=== PATIENT | female | born 1965 | race American Indian/Alaskan Native ===

== ENCOUNTER 2019-08-12 11:19 | Inpatient (IN) | payer OTHER ==
[2019-08-12] MEDS ORDERED: SODIUM CHLORIDE 0.9% 500 ML 500 ML IV ONE (11:29)
[2019-08-12 11:55] LABS: Basophils % (Auto) 0.4 % (0.0-1.8); Eosinophils # (Auto) 0.2 K/mm3 (0.0-0.4); Eosinophils % (Auto) 2.7 % (0.0-4.3); Hematocrit 34.3 % (30.3-42.9); Hemoglobin 11.1 gm/dl (10.1-14.3); Lymphocytes # (Auto) 0.6 K/mm3 (1.2-5.4); Lymphocytes % (Auto) 8.6 % (13.4-35.0); Mean Corpuscular HGB Conc 32 % (30-34); Mean Corpuscular Volume 87 fl (79-97); Monocytes # (Auto) 0.4 K/mm3 (0.0-0.8); Platelet Count 327 K/mm3 (140-440); Red Blood Count 3.93 M/mm3 (3.65-5.03); Red Cell Distribution Width 19.2 % (13.2-15.2)
--- NOTE | 2019-08-12 11:57 | XRay Report ---
CHEST 1 VIEW INDICATION: possible Sepsis. COMPARISON: None FINDINGS: Support devices: Right-sided Port-A-Cath with tip at the cavoatrial junction in satisfactory position . Heart: Within normal limits. Lungs/Pleura: Very mild interstitial edema with probable trace effusion on the right. Additional findings: None. IMPRESSION: 1. Very mild interstitial edema with probable trace effusion on the right. Signer Name: Thang Franco MD Signed: 08/12/2019 11:53 AM Workstation Name: [id number]
[2019-08-12 12:06] LABS: INR 1.71 (0.87-1.13)
[2019-08-12 12:22] LABS: Alanine Aminotransferase 35 units/L (7-56); Albumin 2.6 g/dL (3.9-5); BUN/Creatinine Ratio 22; Blood Urea Nitrogen 20 mg/dL (7-17); Calcium 8.3 mg/dL (8.4-10.2); Hemolysis Index 9
[2019-08-12] MEDS ORDERED: SODIUM CHLORIDE 0.9% 1000 ML IV SOLN IV ONE (12:29)
[2019-08-12] MEDS ORDERED: VANCOMYCIN 1,250 MG in SODIUM CHLORIDE 0.9% 500 ML 500 ML IV ONE (12:29)
--- NOTE | 2019-08-12 12:34 | Emergency Department Report ---
<BRITTA ESCOBAR - Last Filed: 08/12/19 12:49> ED General Adult HPI - General Chief complaint: Chest Pain Stated complaint: CHEST/BACK PAIN/ESTEFANÍA Time Seen by Provider: 08/12/19 12:03 Source: patient, family Mode of arrival: Ambulatory Limitations: No Limitations - History of Present Illness Initial comments: This is a pleasant 53 YO female with a past medical history of uterine cancer with mets to the bone and liver who presents with acute shortness of breath and lower abdominal pain. She has been admitted for MRSA bacteremia and bilateral PE started on elequis. She She reports associated coughing, subjective fever, gener alized weakness and productive cough. She is not currently being treated for the cancer with chemotherapy or radiation. Onset/Timin -: Gradual, days(s) Location: chest, abdomen Radiation: non-radiation Consistency: constant Improves with: none Worsens with: movement Associated Symptoms: denies other symptoms Treatments Prior to Arrival: none - Related Data Allergies Allergy/AdvReac Type Severity Reaction Status Date / Time No Known Allergies Allergy Verified 08/12/19 11:21 ED Review of Systems Comment: All other systems reviewed and negative Constitutional: chills, fever, malaise Respiratory: cough, shortness of breath Gastrointestinal: abdominal pain ED Past Medical Hx - Past Medical History Previous Medical History?: Yes Hx Pulmonary Embolism: Yes (bilateral) Hx of Cancer: Yes (uterine, liver, spleen bone metastisis) Additional medical history: MRSA - Surgical History Past Surgical History?: Yes Additional Surgical History: Port to right chest. hysterectomy ED Physical Exam - General Limitations: No Limitations General appearance: alert, in no apparent distress, cachectic - Head Head exam: Present: atraumatic, normocephalic - Eye Eye exam: Present: normal appearance - ENT ENT exam: Present: mucous membranes moist - Neck Neck exam: Present: normal inspection - Respiratory Respiratory exam: Present: other (bilateral basilar crackles ). Absent: respiratory distress, accessory muscle use - Cardiovascular Cardiovascular Exam: Present: regular rate (tachycardia), normal rhythm. Absent: systolic murmur, diastolic murmur, rubs, gallop - GI/Abdominal GI/Abdominal exam: Present: soft, normal bowel sounds. Absent: distended, tenderness, guarding, rebound - Rectal Rectal exam: Present: deferred - Extremities Exam Extremities exam: Present: normal inspection, full ROM. Absent: tenderness, pedal edema, calf tenderness - Back Exam Back exam: Present: normal inspection - Neurological Exam Neurological exam: Present: alert, oriented X3 - Psychiatric Psychiatric exam: Present: normal affect, normal mood - Skin Skin exam: Present: warm, dry, intact, normal color. Absent: rash ED Medical Decision Making - Lab Data Result diagrams: 08/12/19 11:36 08/12/19 11:36 - EKG Data -: EKG Interpreted by Me Rate: tachycardia (interpreted at 1133 sinus tachycardia with a rate of 123 normal axis, normal intervals, no acute ST or T wave changes) - EKG Data When compared to previous EKG there are: previous EKG unavailable ED Disposition Clinical Impression: Hypoxia Pneumonia Qualifiers: Pneumonia type: due to unspecified organism Laterality: bilateral Lung location: lower lobe of lung Qualified Code(s): J18.9 - Pneumonia, unspecified organism UTI (urinary tract infection) Qualifiers: Urinary tract infection type: acute cystitis Hematuria presence: with hematuria Qualified Code(s): N30.01 - Acute cystitis with hematuria Disposition: OP ADMIT IP TO THIS HOSP Condition: Stable <AL DE GUZMAN - Last Filed: 08/12/19 14:26> ED Review of Systems ROS: Stated complaint: CHEST/BACK PAIN/ESTEFANÍA Other details as noted in HPI ED Course Vital Signs 08/12/19 08/12/19 08/12/19 11:22 12:45 13:10 Temperature 97.4 F L Pulse Rate 125 H 116 H Respiratory 18 16 Rate Blood Pressure 100/70 Blood Pressure 100/74 [Left] O2 Sat by Pulse 92 89 97 Oximetry 08/12/19 08/12/19 14:00 14:14 Temperature 97.3 F L Pulse Rate 112 H Respiratory 16 Rate Blood Pressure Blood Pressure 116/83 [Left] O2 Sat by Pulse 92 Oximetry ED Medical Decision Making - Lab Data Result diagrams: 08/12/19 11:36 08/12/19 11:36 Lab Results 08/12/19 08/12/19 08/12/19 Range/Units 11:36 11:36 11:36 WBC 7.4 (4.5-11.0) K/mm3 RBC 3.93 (3.65-5.03) M/mm3 Hgb 11.1 (10.1-14.3) gm/dl Hct 34.3 (30.3-42.9) % MCV 87 (79-97) fl MCH 28 (28-32) pg MCHC 32 (30-34) % RDW 19.2 H (13.2-15.2) % Plt Count 327 (140-440) K/mm3 Lymph % (Auto) 8.6 L (13.4-35.0) % Noble % (Auto) 5.0 (0.0-7.3) % Eos % (Auto) 2.7 (0.0-4.3) % Baso % (Auto) 0.4 (0.0-1.8) % Lymph # 0.6 L (1.2-5.4) K/mm3 Noble # 0.4 (0.0-0.8) K/mm3 Eos # 0.2 (0.0-0.4) K/mm3 Baso # 0.0 (0.0-0.1) K/mm3 Seg Neutrophils % 83.3 H (40.0-70.0) % Seg Neutrophils # 6.2 (1.8-7.7) K/mm3 PT 19.8 H (12.2-14.9) Sec. INR 1.71 H (0.87-1.13) VBG pH (7.320-7.420) Sodium 134 L (137-145) mmol/L Potassium 4.1 (3.6-5.0) mmol/L Chloride 97.4 L (98-107) mmol/L Carbon Dioxide 23 (22-30) mmol/L Anion Gap 18 mmol/L BUN 20 H (7-17) mg/dL Creatinine 0.9 (0.7-1.2) mg/dL Estimated GFR > 60 ml/min BUN/Creatinine Ratio 22 % Glucose 110 H (65-100) mg/dL Lactic Acid (0.7-2.0) mmol/L Calcium 8.3 L (8.4-10.2) mg/dL Total Bilirubin 0.90 (0.1-1.2) mg/dL AST 71 H (5-40) units/L ALT 35 (7-56) units/L Alkaline Phosphatase 672 H (35-129) units/L Troponin T (0.00-0.029) ng/mL Total Protein 6.7 (6.3-8.2) g/dL Albumin 2.6 L (3.9-5) g/dL Albumin/Globulin Ratio 0.6 % Urine Color (Yellow) Urine Turbidity (Clear) Urine pH (5.0-7.0) Ur Specific Mcdermott (1.003-1.030) Urine Protein (Negative) mg/dL Urine Glucose (UA) (Negative) mg/dL Urine Ketones (Negative) mg/dL Urine Blood (Negative) Urine Nitrite (Negative) Urine Bilirubin (Negative) Urine Urobilinogen (<2.0) mg/dL Ur Leukocyte Esterase (Negative) Urine WBC (Auto) (0.0-6.0) /HPF Urine RBC (Auto) (0.0-6.0) /HPF U Epithel Cells (Auto) (0-13.0) /HPF Urine Bacteria (Auto) (Negative) /HPF 08/12/19 08/12/19 08/12/19 Range/Units 11:36 11:36 11:36 WBC (4.5-11.0) K/mm3 RBC (3.65-5.03) M/mm3 Hgb (10.1-14.3) gm/dl Hct (30.3-42.9) % MCV (79-97) fl MCH (28-32) pg MCHC (30-34) % RDW (13.2-15.2) % Plt Count (140-440) K/mm3 Lymph % (Auto) (13.4-35.0) % Noble % (Auto) (0.0-7.3) % Eos % (Auto) (0.0-4.3) % Baso % (Auto) (0.0-1.8) % Lymph # (1.2-5.4) K/mm3 Noble # (0.0-0.8) K/mm3 Eos # (0.0-0.4) K/mm3 Baso # (0.0-0.1) K/mm3 Seg Neutrophils % (40.0-70.0) % Seg Neutrophils # (1.8-7.7) K/mm3 PT (12.2-14.9) Sec. INR (0.87-1.13) VBG pH 7.405 (7.320-7.420) Sodium (137-145) mmol/L Potassium (3.6-5.0) mmol/L Chloride (98-107) mmol/L Carbon Dioxide (22-30) mmol/L Anion Gap mmol/L BUN (7-17) mg/dL Creatinine (0.7-1.2) mg/dL Estimated GFR ml/min BUN/Creatinine Ratio % Glucose (65-100) mg/dL Lactic Acid 1.60 (0.7-2.0) mmol/L Calcium (8.4-10.2) mg/dL Total Bilirubin (0.1-1.2) mg/dL AST (5-40) units/L ALT (7-56) units/L Alkaline Phosphatase (35-129) units/L Troponin T < 0.010 (0.00-0.029) ng/mL Total Protein (6.3-8.2) g/dL Albumin (3.9-5) g/dL Albumin/Globulin Ratio % Urine Color (Yellow) Urine Turbidity (Clear) Urine pH (5.0-7.0) Ur Specific Mcdermott (1.003-1.030) Urine Protein (Negative) mg/dL Urine Glucose (UA) (Negative) mg/dL Urine Ketones (Negative) mg/dL Urine Blood (Negative) Urine Nitrite (Negative) Urine Bilirubin (Negative) Urine Urobilinogen (<2.0) mg/dL Ur Leukocyte Esterase (Negative) Urine WBC (Auto) (0.0-6.0) /HPF Urine RBC (Auto) (0.0-6.0) /HPF U Epithel Cells (Auto) (0-13.0) /HPF Urine Bacteria (Auto) (Negative) /HPF 08/12/19 Range/Units Unknown WBC (4.5-11.0) K/mm3 RBC (3.65-5.03) M/mm3 Hgb (10.1-14.3) gm/dl Hct (30.3-42.9) % MCV (79-97) fl MCH (28-32) pg MCHC (30-34) % RDW (13.2-15.2) % Plt Count (140-440) K/mm3 Lymph % (Auto) (13.4-35.0) % Noble % (Auto) (0.0-7.3) % Eos % (Auto) (0.0-4.3) % Baso % (Auto) (0.0-1.8) % Lymph # (1.2-5.4) K/mm3 Noble # (0.0-0.8) K/mm3 Eos # (0.0-0.4) K/mm3 Baso # (0.0-0.1) K/mm3 Seg Neutrophils % (40.0-70.0) % Seg Neutrophils # (1.8-7.7) K/mm3 PT (12.2-14.9) Sec. INR (0.87-1.13) VBG pH (7.320-7.420) Sodium (137-145) mmol/L Potassium (3.6-5.0) mmol/L Chloride (98-107) mmol/L Carbon Dioxide (22-30) mmol/L Anion Gap mmol/L BUN (7-17) mg/dL Creatinine (0.7-1.2) mg/dL Estimated GFR ml/min BUN/Creatinine Ratio % Glucose (65-100) mg/dL Lactic Acid (0.7-2.0) mmol/L Calcium (8.4-10.2) mg/dL Total Bilirubin (0.1-1.2) mg/dL AST (5-40) units/L ALT (7-56) units/L Alkaline Phosphatase (35-129) units/L Troponin T (0.00-0.029) ng/mL Total Protein (6.3-8.2) g/dL Albumin (3.9-5) g/dL Albumin/Globulin Ratio % Urine Color Yellow (Yellow) Urine Turbidity Slightly-cloudy (Clear) Urine pH 7.0 (5.0-7.0) Ur Specific Mcdermott 1.014 (1.003-1.030) Urine Protein <15 mg/dl (Negative) mg/dL Urine Glucose (UA) Neg (Negative) mg/dL Urine Ketones Neg (Negative) mg/dL Urine Blood Sm (Negative) Urine Nitrite Neg (Negative) Urine Bilirubin Neg (Negative) Urine Urobilinogen < 2.0 (<2.0) mg/dL Ur Leukocyte Esterase Lg (Negative) Urine WBC (Auto) 19.0 H (0.0-6.0) /HPF Urine RBC (Auto) 4.0 (0.0-6.0) /HPF U Epithel Cells (Auto) 1.0 (0-13.0) /HPF Urine Bacteria (Auto) 1+ (Negative) /HPF - Radiology Data CTA CHEST WITH IV CONTRAST INDICATION: Chest pain, shortness of breath, hypoxia.. TECHNIQUE: Axial CT images were obtained through the chest after injection of 100 mL of IV Omnipaque 350 IV contrast. 3 plane MIP reconstructions were produced. All CT scans at this location are performed using CT dose reduction for ALARA by means of automated exposure control. COMPARISON: None available. FINDINGS: Pulmonary Arteries: No pulmonary emboli. There is dilation of the main pulmonary artery measuring 3.8 cm at the level of the pulmonary bifurcation. Lungs: There is linear interlobular septal thickening associated with mild ground glass opacities in the central lungs with sparing of the periphery most likely reflecting pulmonary edema. Trachea and Bronchi: No significant abnormality. Heart and Pericardium: No significant abnormality. Vasculature: No significant abnormality. Lymphatics: No lymphadenopathy. Additional Findings: There is a large complex nodule replacing most of the right thyroid lobe and isthmus measuring 5.3 x 4.7 cm in greatest axial dimension. Upper Abdomen: There is a heterogeneous lesion in the anterior right hepatic lobe that measures approximately 8.3 x 9.7 cm. Skeletal Structures: No significant osseous abnormality. IMPRESSION: 1. No CT evidence for pulmonary embolism. 2. Central lung predominant interlobular septal thickening and groundglass opacities most likely reflecting pulmonary edema. Atypical infectious or inflammatory process could appear similar as well. 3. Heterogeneous hypoattenuating lesion in the right hepatic lobe is incompletely visualized. Differential considerations would include a liver neoplasm (primary or metastatic) as well as a liver abscess. Further evaluation with dedicated multiphase liver CT or MRI is recommended. 4. Large heterogeneous thyroid nodule, for which thyroid ultrasound is recommended if not already done at another institution. Signer Name: Armond Jett MD Signed: 08/12/2019 1:55 PM Workstation Name: [id number] Transcribed By: PARMJIT Dictated By: Armond Jett MD Electronically Authenticated By: Armond Jett MD Signed Date/Time: 08/12/19 5432 - Medical Decision Making Vital Signs 08/12/19 08/12/19 08/12/19 11:22 12:45 13:10 Temperature 97.4 F L Pulse Rate 125 H 116 H Respiratory 18 16 Rate Blood Pressure 100/70 Blood Pressure 100/74 [Left] O2 Sat by Pulse 92 89 97 Oximetry 08/12/19 08/12/19 14:00 14:14 Temperature 97.3 F L Pulse Rate 112 H Respiratory 16 Rate Blood Pressure Blood Pressure 116/83 [Left] O2 Sat by Pulse 92 Oximetry Patient is a 53-year-old female who is presenting with cough and subjective fevers and shortness breath. X-rays indicative of a possible infiltrate. CT was negative for pulmonary embolus but does show that she has some ground glass opacities in the lower lungs the suggestive of edema versus infectious process. Given the fact the patient has had fevers with 10 to believe this is more likely a pneumonia. Patient was started on antibiotics and blood cultures as she did meet sepsis criteria. Patient blood pressure did improve after fluids. Patient is requiring oxygen at this time. Patient be ad mitted to the hospitalist service. Critical Care Time: Yes (30) Critical care attestation.: If time is entered above; I have spent that time in minutes in the direct care of this critically ill patient, excluding procedure time. ED Disposition Is pt being admited?: Yes Time of Disposition: 14:26
[2019-08-12] MEDS: CEFEPIME/NS 2 GM/100 ML 2 GM/100 ML BAG IV SCH ×2 (12:57→23:14)
[2019-08-12] MEDS ORDERED: VANCOMYCIN PHARMACY TO DOSE IV SCH (13:00)
--- NOTE | 2019-08-12 14:00 | Cat Scan Report ---
CTA CHEST WITH IV CONTRAST INDICATION: Chest pain, shortness of breath, hypoxia.. TECHNIQUE: Axial CT images were obtained through the chest after injection of 100 mL of IV Omnipaque 350 IV cont rast. 3 plane MIP reconstructions were produced. All CT scans at this location are performed using CT dose reduction for ALARA by means of automated exposure control. COMPARISON: None available. FINDINGS: Pulmonary Arteries: No pulmonary emboli. There is dilation of the main pulmonary artery measuring 3.8 cm at the level of the pulmonary bifurcation. Lungs: There is linear interlobular septal thickening associated with mild ground glass opacities in the central lungs with sparing of the periphery most likely reflecting pulmonary edema. Trachea and Bronchi: No significant abnormality. Heart and Pericardium: No significant abnormality. Vasculature: No significant abnormality. Lymphatics: No lymphadenopathy. Additional Findings: There is a large complex nodule replacing most of the right thyroid lobe and ist hmus measuring 5.3 x 4.7 cm in greatest axial dimension. Upper Abdomen: There is a heterogeneous lesion in the anterior right hepatic lobe that measures appro ximately 8.3 x 9.7 cm. Skeletal Structures: No significant osseous abnormality. IMPRESSION: 1. No CT evidence for pulmonary embolism. 2. Central lung predominant interlobular septal thickening and groundglass opacities most likely refl ecting pulmonary edema. Atypical infectious or inflammatory process could appear similar as well. 3. Heterogeneous hypoattenuating lesion in the right hepatic lobe is incompletely visualized. Differe ntial considerations would include a liver neoplasm (primary or metastatic) as well as a liver absces s. Further evaluation with dedicated multiphase liver CT or MRI is recommended. 4. Large heterogeneous thyroid nodule, for which thyroid ultrasound is recommended if not already don e at another institution. Signer Name: Armond Jett MD Signed: 08/12/2019 1:55 PM Workstation Name: [id number]
[2019-08-12 14:13] LABS: Bacteria,Urine 1+ /HPF (Negative); Bilirubin,Urine NEG (Negative); Blood,Urine SM (Negative); Color,Urine Yellow (Yellow); Protein,Urine <15 mg/dL mg/dL (Negative); Urobilinogen,Urine < 2.0 mg/dL (<2.0)
[2019-08-12] MEDS ORDERED: VANCOMYCIN 1,250 MG in SODIUM CHLORIDE 0.9% 250ML 250 ML IV ONE (15:00)
--- NOTE | 2019-08-12 15:31 | History and Physical Report ---
History of Present Illness Date of examination: 08/12/19 Date of admission: 08/12/19 15:05 Chief complaint: SOB with cough History of present illness: This is a unfortunate 53 YO female with a past medical history of uterine cancer with mets to the bone and liver Dx on December 2018 s/p total hysterectomy, h/o MRSA bacteremia, spinal abscess, h/o PE on eliquis who presents with progressive shortness of breath and lower abdominal pain for last few days. Patient relo cated to her friends from [place] 2 days ago. She reports associated coughing, subjective fever, generalized weakness and productive cough. She does not have any PCP here and is not currently being treated for the cancer with chemotherapy or radiation. Her family lives at [facility], she came to this country 2 years ago. All her treatments for cancer was done in [place]. In the ER her O2 sat was at 80s, CXR showed infiltrates vs ground glass opacities, UA suggestive of UTI. She was placed on supplemental O2/Bipap, given empiric abx and called for admission. Review of System: Constitutional: + fever, + chills, + weight loss Ears, eyes, nose, mouth and throat: no nasal congestion, no nasal discharge, no sinus pressure, no vision change, no red eye. Neck: No neck pain or rigidity. Cardiovascular: No chest pain, no orthopnea, no palpitations, no leg swelling Respiratory: + shortness of breath, + cough, + congestion, + wheezing Gastrointestinal: + abdominal pain, + nausea, no vomiting Genitourinary : no dysuria, no hematuria Musculoskeletal: no joint swelling or muscle ache Integumentary: no rash, no pruritis Neurological: no parathesias, no numbness, no tingling Endocrine: no cold or heat intolerance, no polyuria or polydipsia Hematologic/Lymphatic: no easy bruising, no easy bleeding, no gland swelling Allergic/Immunologic: no urticaria, no angioedema. Past History Past Medical History: cancer (stage 4 uterine cancer with mets to liver and bones) Past Surgical History: hysterectomy Social history: Lives alone. denies: smoking, alcohol abuse, prescription drug abuse Family history: no significant family history Medications and Allergies Allergies Allergy/AdvReac Type Severity Reaction Status Date / Time No Known Allergies Allergy Verified 08/12/19 11:21 Active Meds: Active Medications Cefepime HCl (Cefepime/Ns 2 Gm/100 Ml) 2 gm in 100 mls @ 200 mls/hr IV Q8HR TREY; Protocol Last Admin: 08/12/19 12:57 Dose: 200 mls/hr Documented by: Vancomycin HCl 1,250 mg/ (Sodium Chloride) 275 mls @ 166.667 mls/hr IV ONCE ONE Stop: 08/12/19 16:38 Last Admin: 08/12/19 14:20 Dose: 166.667 mls/hr Documented by: Vancomycin HCl (Vancomycin/Ns 1 Gm/250 Ml) 1 gm in 250 mls @ 166.667 mls/hr IV Q12H TREY Exam - Physical Exam Narrative exam: GENERAL: illlooking, malnourished AAF lying on bed appeared to be in mild discomfort. HEENT: Normocephalic. Atraumatic. No conjunctival congestion or icterus. Patient has moist mucous membranes. NECK: Supple. Trachea midline. CHEST/LUNGS: Coarse BS auscultated bilaterally, breathing slightly labored. HEART/CARDIOVASCULAR: Regular in rate and rhythm. S1 and S2 positive. ABDOMEN: Abdomen is soft, mild tender. Patient has normal bowel sounds. SKIN: There is no rash. Warm and dry. NEURO: No focal motor deficit. Follows command. MUSCULOSKELETAL: No joint effusion or tenderness. EXTRIMITY: No edema, no cyanosis or clubbing. PSYCH: Cooperative. - Constitutional Vitals: Temp Pulse Resp BP Pulse Ox 97.3 F L 112 H 16 116/83 92 08/12/19 14:14 08/12/19 14:14 08/12/19 14:00 08/12/19 14:00 08/12/19 14:00 Results - Labs CBC & Chem 7: 08/12/19 11:36 08/12/19 11:36 Labs: Abnormal lab results 08/12/19 08/12/19 08/12/19 Range/Units 11:36 11:36 11:36 RDW 19.2 H (13.2-15.2) % Lymph % (Auto) 8.6 L (13.4-35.0) % Lymph # 0.6 L (1.2-5.4) K/mm3 Seg Neutrophils % 83.3 H (40.0-70.0) % PT 19.8 H (12.2-14.9) Sec. INR 1.71 H (0.87-1.13) Sodium 134 L (137-145) mmol/L Chloride 97.4 L (98-107) mmol/L BUN 20 H (7-17) mg/dL Glucose 110 H (65-100) mg/dL Calcium 8.3 L (8.4-10.2) mg/dL AST 71 H (5-40) units/L Alkaline Phosphatase 672 H (35-129) units/L Albumin 2.6 L (3.9-5) g/dL Urine WBC (Auto) (0.0-6.0) /HPF 08/12/19 Range/Units Unknown RDW (13.2-15.2) % Lymph % (Auto) (13.4-35.0) % Lymph # (1.2-5.4) K/mm3 Seg Neutrophils % (40.0-70.0) % PT (12.2-14.9) Sec. INR (0.87-1.13) Sodium (137-145) mmol/L Chloride (98-107) mmol/L BUN (7-17) mg/dL Glucose (65-100) mg/dL Calcium (8.4-10.2) mg/dL AST (5-40) units/L Alkaline Phosphatase (35-129) units/L Albumin (3.9-5) g/dL Urine WBC (Auto) 19.0 H (0.0-6.0) /HPF Assessment and Plan Acute hypoxic respiratory failure - likely from B/L PNA vs Pneumonitis vs Pulmonary edema - cont supplemental O2, scheduled nebs, iv steroid, iv abx - will also give lasix iv, repeat CXR, obtain 2d echo, get sputum cx, blood cx - Bipap prn and at bedtime as needed SIRS, likely from underlying metastatic disease and associated respiratory failure h/o PE on eliquis, will cont eliquis Uterine Cancer with mets to bone and liver s/p chemo and total hysterectomy - will consult Dr Sun, she does not have oncologist here - will get med rec from [place] UTI, get Cx, treat with abx Large thyroid nodule, obtain TSH/free T4, thyroid US. could be metastatic lesion DVT Px, on SCD Poor prognosis Full code status Radiological data: CTA chest: 1. No CT evidence for pulmonary embolism. 2. Central lung predominant interlobular septal thickening and groundglass opacities most likely reflecting pulmonary edema. Atypical infectious or inflammatory process could appear similar as well. 3. Heterogeneous hypoattenuating lesion in the right hepatic lobe is incompletely visualized. Differential considerations would include a liver neoplasm (primary or metastatic) as well as a liver abscess. Further evaluation with dedicated multiphase liver CT or MRI is recommended. 4. Large heterogeneous thyroid nodule, for which thyroid ultrasound is recommended if not already done at another institution. Chest x-ray:1. Very mild interstitial edema with probable trace effusion on the right.
[2019-08-12] MEDS ORDERED: hydrALAZINE 20 MG/1 ML INJ IV PRN (15:35)
[2019-08-12] MEDS: oxyCODONE /ACETAMINOPHEN 5-325MG TAB PO PRN ×2 (17:53→23:48)
[2019-08-12] MEDS: FUROSEMIDE 40 MG/4 ML INJ IV SCH (17:53)
[2019-08-12] MEDS ORDERED: ONDANSETRON 4 MG/2 ML INJ IV PRN (18:24)
[2019-08-12] MEDS ORDERED: MORPHINE 2 MG/1 ML INJ IV PRN (18:25)
[2019-08-12] MEDS ORDERED: IPRATROPIUM/ALBUTEROL SULFATE 3 ML AMPUL.NEB IH SCH (20:00)
[2019-08-12] MEDS: APIXABAN 5 MG TAB PO SCH (21:16)
[2019-08-12] MEDS: FAMOTIDINE 10 MG TAB PO SCH (21:16)
--- NOTE | 2019-08-12 23:58 | Ultrasound Report ---
ULTRASOUND THYROID INDICATION / CLINICAL INFORMATION: thyroid nodule. COMPARISON: CT chest 08/12/2019 FINDINGS: RIGHT LOBE: Size = 5.7 x 3.5 x 2.6 cm. - Echogenicity: Normal. - Vascularity: Normal. - Nodules < 1 cm: None. - Nodules >= 1 cm or Suspicious Nodules: 3.7 x 2.4 x 2.7 cm heterogeneous nodule, mixed cystic and so lid, wider than tall,, hyperechoic, smoothly marginated nodule without echogenic foci. LEFT LOBE: Size = 4.8 x 1.2 x 1.8 cm. - Echogenicity: Normal. - Vascularity: Normal. - Nodules < 1 cm: 0.8 cm nodule, solid, isoechoic, wider than tall, smoothly marginated, no echogenic foci. TR2 - Nodules >= 1 cm or Suspicious Nodules: A 1.3 x 1.2 x 1.1 cm, isoechoic, solid, smoothly marginated, wider than tall nodule without echogenic foci in the superior pole. TR3. Separate 1.4 x 1 x 1.1 cm, isoechoic, solid, wider than tall, smoothly marginated nodule without echogenic foci. TR3. ISTHMUS: No significant abnormality. Thickness = 0.5 cm. - Nodules < 1 cm: None. - Nodules >= 1 cm or Suspicious Nodules: Heterogeneous, mixed cystic and solid, isoechoic, wider than tall, 1.9 x 0.9 x 1.3 cm nodule with smooth margins and no echogenic foci. TR2. Separate solid, smoo thly marginated, isoechoic, wider than tall nodule measuring 1.9 x 1.7 x 1.4 cm without echogenic foc i. TR3 LYMPH NODES: No abnormal lymph nodes. PARATHYROID GLANDS: No abnormal parathyroid gland. ADDITIONAL FINDINGS: None. IMPRESSION: 1. Multinodular thyroid. None meet criteria for biopsy. The largest nodule at the isthmus scores Ti-R ADS 3 and measures 1.7 cm in average dimension. This nodule should be followed with ultrasound. Note: Nodule size based on mean (average) size of 3 dimensions. Note: Nodules < 1 cm do not typically require follow-up or FNA unless there are suspicious features ( STARLA, 2015) ACR TI-RADS Thyroid Nodule Recommendations TI-RADS 1 (0 points) -- Benign. No FNA or follow-up. TI-RADS 2 (1-2 points) -- Not suspicious. No FNA or follow-up. TI-RADS 3 (3 points) -- Mildly suspicious. Follow up in 1 year if 1.5 cm. FNA if 2.5 cm. TI-RADS 4 (4-6 points) -- Moderately suspicious. Follow up in 1 year if 1.0 cm. FNA if 1.5 cm. TI-RADS 5 (7+ points) -- Highly suspicious. Follow up in 1 year if 0.5 cm. FNA if 1.0 cm. Signer Name: Carlos Rolon MD Signed: 08/12/2019 11:54 PM Workstation Name: [id number]
[2019-08-13] MEDS ORDERED: ALBUTEROL 2.5 MG/3 ML NEBU IH PRN (00:46)
[2019-08-13] MEDS: ACETAMINOPHEN 325 MG TAB PO PRN (01:44)
[2019-08-13] MEDS: VANCOMYCIN/NS 1 GM/250 ML 1 GM/250 ML BAG IV SCH ×2 (04:16→18:15)
[2019-08-13] MEDS: oxyCODONE /ACETAMINOPHEN 5-325MG TAB PO PRN ×2 (06:30→19:21)
[2019-08-13] MEDS: FUROSEMIDE 40 MG/4 ML INJ IV SCH ×2 (06:31→18:16)
[2019-08-13] MEDS: CEFEPIME/NS 2 GM/100 ML 2 GM/100 ML BAG IV SCH ×3 (06:31→21:51)
--- NOTE | 2019-08-13 08:16 | XRay Report ---
CHEST 1 VIEW INDICATION: SOB. COMPARISON: 08/12/2019 FINDINGS: Support devices: Right Xxvsle-n-Mxua tip is in the right atrium at the cavoatrial junction. Heart: Within normal limits. Lungs/Pleura: Bilateral multi lobar interstitial and alveolar opacities. Some clearing in the right l jac base. Additional findings: None. IMPRESSION: 1. Multilobar pulmonary edema with slight improvement. Signer Name: Rickie Guallpa MD Signed: 08/13/2019 8:11 AM Workstation Name: [id number]
[2019-08-13] MEDS: FAMOTIDINE 10 MG TAB PO SCH ×2 (11:44→21:45)
[2019-08-13] MEDS: APIXABAN 5 MG TAB PO SCH ×2 (11:44→21:52)
[2019-08-13] MEDS ORDERED: PNEUMOCOCCAL 23 Valent 0.5 ML VIAL IM ONE (12:00)
--- NOTE | 2019-08-13 13:53 | Progress Note ---
Assessment and Plan Assessment and plan: Acute hypoxic respiratory failure - likely from PNA vs Pneumonitis vs Pulmonary edema - cont supplemental O2, scheduled nebs, iv abx, lasix iv - blood cultures pending Sepsis evidenced by HR>90, fever:101F -Probably secondary to pneumonia -Patient has prior history of MRSA bacteremia -Continue IV antibiotics with vancomycin and cefepime -Blood cultures pending Acute diastolic heart failure with EF of 55-60%, POA -On IV diuretic -Echo showed EF of 55-60% with abnormal diastolic dysfunction H/o PE -cont eliquis Uterine Cancer with mets to bone and liver s/p chemo and total hysterectomy - Oncology, Dr Snu consulted Possible UTI -Urine culture pending RT hepatic lesion -Differentials include metastasis versus abscess -CT-guided biopsy pending Thyroid nodule -Thyroid US showed multiple nodules, none large to be biopsied -For outpatient follow-up DVT ppx: SCD Poor prognosis Full code status Disposition: DC per clinical course History Interval history: Patient reports feeling better. Her shortness of breath has improved. She denied chest pain. Hospitalist Physical - Constitutional Vitals: Temp Pulse Resp BP Pulse Ox 98.6 F 105 H 18 102/71 94 08/13/19 11:38 08/13/19 11:38 08/13/19 11:38 08/13/19 11:38 08/13/19 11:38 General appearance: Present: no acute distress - EENT Eyes: Present: PERRL, EOM intact ENT: hearing intact, clear oral mucosa - Neck Neck: Present: supple - Respiratory Respiratory effort: normal Respiratory: bilateral: CTA, diminished - Cardiovascular Rhythm: regular Heart Sounds: Present: S1 & S2 - Extremities Extremities: No edema - Abdominal General gastrointestinal: soft, non-tender, normal bowel sounds - Integumentary Integumentary: Present: warm, dry - Psychiatric Psychiatric: cooperative - Neurologic Neurologic: moves all extremities Results - Labs CBC & Chem 7: 08/12/19 11:36 08/15/19 07:27 Labs: Laboratory Last Values WBC 7.4 K/mm3 (4.5-11.0) 08/12/19 11:36 RBC 3.93 M/mm3 (3.65-5.03) 08/12/19 11:36 Hgb 11.1 gm/dl (10.1-14.3) 08/12/19 11:36 Hct 34.3 % (30.3-42.9) 08/12/19 11:36 MCV 87 fl (79-97) 08/12/19 11:36 MCH 28 pg (28-32) 08/12/19 11:36 MCHC 32 % (30-34) 08/12/19 11:36 RDW 19.2 % (13.2-15.2) H 08/12/19 11:36 Plt Count 327 K/mm3 (140-440) 08/12/19 11:36 Lymph % (Auto) 8.6 % (13.4-35.0) L 08/12/19 11:36 [place] % (Auto) 5.0 % (0.0-7.3) 08/12/19 11:36 Eos % (Auto) 2.7 % (0.0-4.3) 08/12/19 11:36 Baso % (Auto) 0.4 % (0.0-1.8) 08/12/19 11:36 Lymph # 0.6 K/mm3 (1.2-5.4) L 08/12/19 11:36 [place]y # 0.4 K/mm3 (0.0-0.8) 08/12/19 11:36 Eos # 0.2 K/mm3 (0.0-0.4) 08/12/19 11:36 Baso # 0.0 K/mm3 (0.0-0.1) 08/12/19 11:36 Seg Neutrophils % 83.3 % (40.0-70.0) H 08/12/19 11:36 Seg Neutrophils # 6.2 K/mm3 (1.8-7.7) 08/12/19 11:36 PT 19.8 Sec. (12.2-14.9) H 08/12/19 11:36 INR 1.71 (0.87-1.13) H 08/12/19 11:36 VBG pH 7.405 (7.320-7.420) 08/12/19 11:36 Sodium 134 mmol/L (137-145) L 08/12/19 11:36 Potassium 4.1 mmol/L (3.6-5.0) 08/12/19 11:36 Chloride 97.4 mmol/L (98-107) L 08/12/19 11:36 Carbon Dioxide 23 mmol/L (22-30) 08/12/19 11:36 Anion Gap 18 mmol/L 08/12/19 11:36 BUN 20 mg/dL (7-17) H 08/12/19 11:36 Creatinine 0.9 mg/dL (0.7-1.2) 08/12/19 11:36 Estimated GFR > 60 ml/min 08/12/19 11:36 BUN/Creatinine Ratio 22 % 08/12/19 11:36 Glucose 110 mg/dL (65-100) H 08/12/19 11:36 Lactic Acid 1.80 mmol/L (0.7-2.0) 08/12/19 14:35 Calcium 8.3 mg/dL (8.4-10.2) L 08/12/19 11:36 Total Bilirubin 0.90 mg/dL (0.1-1.2) 08/12/19 11:36 AST 71 units/L (5-40) H 08/12/19 11:36 ALT 35 units/L (7-56) 08/12/19 11:36 Alkaline Phosphatase 672 units/L (35-129) H 08/12/19 11:36 Troponin T < 0.010 ng/mL (0.00-0.029) 08/12/19 11:36 NT-Pro-B Natriuret Pep 403.6 pg/mL (0-900) 08/12/19 14:35 Total Protein 6.7 g/dL (6.3-8.2) 08/12/19 11:36 Albumin 2.6 g/dL (3.9-5) L 08/12/19 11:36 Albumin/Globulin Ratio 0.6 % 08/12/19 11:36 TSH 0.620 mlU/mL (0.270-4.200) 08/12/19 17:58 Free T4 1.40 ng/dL (0.76-1.46) 08/12/19 17:37 Urine Color Yellow (Yellow) 08/12/19 Unknown Urine Turbidity Slightly-cloudy (Clear) 08/12/19 Unknown Urine pH 7.0 (5.0-7.0) 08/12/19 Unknown Ur Specific [place] 1.014 (1.003-1.030) 08/12/19 Unknown Urine Protein <15 mg/dl mg/dL (Negative) 08/12/19 Unknown Urine Glucose (UA) Neg mg/dL (Negative) 08/12/19 Unknown Urine Ketones Neg mg/dL (Negative) 08/12/19 Unknown Urine Blood Sm (Negative) 08/12/19 Unknown Urine Nitrite Neg (Negative) 08/12/19 Unknown Urine Bilirubin Neg (Negative) 08/12/19 Unknown Urine Urobilinogen < 2.0 mg/dL (<2.0) 08/12/19 Unknown Ur Leukocyte Esterase Lg (Negative) 08/12/19 Unknown Urine WBC (Auto) 19.0 /HPF (0.0-6.0) H 08/12/19 Unknown Urine RBC (Auto) 4.0 /HPF (0.0-6.0) 08/12/19 Unknown U Epithel Cells (Auto) 1.0 /HPF (0-13.0) 08/12/19 Unknown Urine Bacteria (Auto) 1+ /HPF (Negative) 08/12/19 Unknown Active Medications - Current Medications Current Medications: Generic Name Dose Route Start Last Admin Trade Name Freq PRN Reason Stop Dose Admin Acetaminophen 650 mg 08/12/19 15:35 08/13/19 01:44 Tylenol PO 650 mg Q4H PRN Administration Pain MILD(1-3)/Fever >100.5/ESPANA Albuterol 2.5 mg 08/13/19 00:46 Proventil IH Q4HRT PRN Shortness Of Breath Albuterol/Ipratropium 1 ampul 08/13/19 08:00 Duoneb *Not For Prn Use* IH TIDRT TREY Apixaban 5 mg 08/12/19 22:00 08/13/19 11:44 Eliquis PO 5 mg Q12HR TREY Administration Protocol Famotidine 10 mg 08/12/19 22:00 08/13/19 11:44 Pepcid PO 10 mg BID TREY Administration Furosemide 40 mg 08/12/19 18:00 08/13/19 06:31 Lasix IV Not Given 0600,1800 [facility] Hydralazine HCl 5 mg 08/12/19 15:35 Apresoline IV Q30MIN PRN HTN SYS>180 SONA>100 Cefepime HCl 2 gm in 100 mls @ 200 mls/hr 08/12/19 13:00 08/13/19 06:31 Cefepime/Ns 2 Gm/100 Ml IV 200 mls/hr Q8HR TREY Administration Protocol Vancomycin HCl 1 gm in 250 mls @ 166.667 mls/hr 08/13/19 04:00 08/13/19 04:16 Vancomycin/Ns 1 Gm/250 Ml IV 166.667 mls/hr Q12H TREY Administration Morphine Sulfate 2 mg 08/12/19 18:25 Morphine IV Q4H PRN Pain , Severe (7-10) Ondansetron HCl 4 mg 08/12/19 18:24 Zofran IV Q8H PRN N/V unrelieved by Reglan Oxycodone/Acetaminophen 1 tab 08/12/19 15:35 08/13/19 06:30 Percocet 5/325 PO 1 tab Q6H PRN Administration Pain, Moderate (4-6) Nutrition/Malnutrition Assess - Dietary Evaluation Nutrition/Malnutrition Findings: Nutrition Notes Start: 08/13/19 12:05 Freq: Status: Active Protocol: Document 08/13/19 12:05 ASHWINI (Rec: 08/13/19 12:45 ASHWINI [id number]) Co-Sign 08/13/19 12:05 LP Nutrition Notes Need for Assessment generated from: MD Order,MST Initial or Follow up Assessment Other Pertinent Diagnosis Uterine cancer mets to bone and liver, SOB, abdominal pain Current Diet Regular Labs/Tests Na 134 BUN 20 Pertinent Medications Reviewed Height 4 ft 9 in Weight 58 kg [place] Body Weight (kg) 38.63 BMI 27.6 Intake Prior to Admission Poor Weight change and time frame Pt stated she lost 57lb within a month. Pt said she didn't know her usual body wt. Weight Status Overweight Subjective/Other Information RD consult for malnutrition and poor oral intake per MD. Pt stated she ate 25% of dinner and 1 ensure last night . Pt ate 25% of breakfast and 1 ensure. Pt stated she has no appetite [employer]. Burn Absent Trauma Absent GI Symptoms None Current % PO Poor (25-49%) Minimum of two criteria Yes Energy Intake (severe) < or equal to 50% Estimated Energy Requirement > or equal to 5 days Interpretation of Weight Loss (non- 7.5% in 3 months severe) Interpretation of Weight Loss (severe) >5% in 1 month Muscle Mass Mild Depletion (non-severe) #1 Nutrition Diagnosis Malnutrition Etiology Uterine cancer mets to bone and liver. As Evidenced by Signs and Symptoms >5% of wt loss in a month, mild muscle mass depletion, < 50% of estimated energy requirements. Is patient on ventilator? No Is Patient Ambulatory and/or Out of Bed Yes REE-([facility]-ambulatory/OOB) [ 1363.544 [id number]] Calculation Used for Recommendations [facility] Additional Notes Protein: 70-87g/kg (1.2-1.5g/ kg) Fluid: 1ml/kcal Nutrition Intervention Change Diet Order: Continue current Add Supplement/Snack (indicate name/kcal Ensure Enlive Vanilla BID /protein ) Provides kCal: 700 Provides Protein (gm) 40 Goal #1 Meet at least 90% of energy and protein needs via PO and ONS intakes Anticipated Discharge Needs: Regular diet Follow-Up By: 08/15/19 Additional Comments F/U for PO and ONS intakes
[2019-08-13] MEDS: IPRATROPIUM/ALBUTEROL SULFATE 3 ML AMPUL.NEB IH SCH ×3 (15:25→21:28)
[2019-08-13] MEDS ORDERED: SODIUM CHLORIDE 0.9% 500 ML 500 ML IV ONE (19:52)
[2019-08-13] MEDS ORDERED: METOPROLOL TARTRATE 5 MG/5 ML INJ IV PRN (21:25)
--- NOTE | 2019-08-13 21:32 | Event Note ---
Date: 08/13/19 [id number]
[2019-08-14 01:54] LABS: BUN/Creatinine Ratio 22; Blood Urea Nitrogen 20 mg/dL (7-17); Calcium 7.6 mg/dL (8.4-10.2); Hemolysis Index 17
[2019-08-14] MEDS: VANCOMYCIN/NS 1 GM/250 ML 1 GM/250 ML BAG IV SCH ×2 (04:19→16:54)
[2019-08-14] MEDS: CEFEPIME/NS 2 GM/100 ML 2 GM/100 ML BAG IV SCH ×3 (06:11→22:01)
[2019-08-14] MEDS: FUROSEMIDE 40 MG/4 ML INJ IV SCH ×2 (06:12→19:38)
--- NOTE | 2019-08-14 07:42 | Hem/Onc Progress Note ---
Assessment and Plan 1. History of uterine cancer. Notes mention of stage 4 with mets to bone and liver. Radiology now shows a 9.7 right hepatic lobe lesion. 2. Large thyroid lesion 5.3 cm. 3. Admitted with fever, cough, abdominal pain. 4. The patient has a port. The patient had port infection in the past and this was removed. 5. Radiology suggests possible pneumonia versus pulmonary edema. 6. History of pulmonary embolism, was on Eliquis, now there is no pulmonary embolism. The patient has multiple issues. She says no chemotherapy has been given. family had a note which gives the sequence of events fever - infection issues they are looking into hospice d/w dr reza - Patient Problems (1) Uterine cancer Current Visit: Yes Status: Acute Subjective Date of service: 08/14/19 Principal diagnosis: uterine ca - liver and bone mets Interval history: weak Objective - Exam Narrative Exam: Pain - none General appearance - awake Performance status dependent for care Eyes - no icterus ENT - no thrush LNs cervical not palpable Neck - no LN Respiratory Normal Breath sounds - CTA anteriorly CVS S1 S2 + Extremities no edema General GI Soft Rectal deferred female - deferred Skin warm PORT + Musculoskeletal - moving limbs Neurologically awake - Constitutional Vitals: Last Vital Signs Temp 98.7 F 08/14/19 05:24 Pulse 106 H 08/14/19 05:24 Resp 20 08/14/19 05:24 BP 101/71 08/14/19 05:24 Pulse Ox 97 08/14/19 05:24 - Labs Lab Results: Laboratory Results - last 24 hr 08/13/19 08/14/19 08/14/19 22:46 00:50 04:33 Sodium 132 L Potassium 3.7 Chloride 99.6 Carbon Dioxide 19 L Anion Gap 17 BUN 20 H Creatinine 0.9 Estimated GFR > 60 BUN/Creatinine Ratio 22 Glucose 155 H POC Glucose 107 H Calcium 7.6 L Magnesium 1.50 L Medications & Allergies - Medications Allergies/Adverse Reactions: Allergies No Known Allergies Allergy (Verified 08/12/19 11:21) Home Medications: Home Medications Medication Instructions Recorded Confirmed Last Taken Type No Known Home Medications [No 08/13/19 08/13/19 Unknown History Reported Home Medications] Active Medications: Generic Name Dose Route Start Last Admin Trade Name Freq PRN Reason Stop Dose Admin Acetaminophen 650 mg 08/12/19 15:35 08/13/19 01:44 Tylenol PO 650 mg Q4H PRN Administration Pain MILD(1-3)/Fever >100.5/ESPANA Albuterol 2.5 mg 08/13/19 00:46 Proventil IH Q4HRT PRN Shortness Of Breath Albuterol/Ipratropium 1 ampul 08/13/19 08:00 08/13/19 21:28 Duoneb *Not For Prn Use* IH 1 ampul TIDRT TREY Administration Apixaban 5 mg 08/12/19 22:00 08/13/19 21:52 Eliquis PO 5 mg Q12HR TREY Administration Protocol Famotidine 10 mg 08/12/19 22:00 08/13/19 21:45 Pepcid PO 10 mg BID TREY Administration Furosemide 40 mg 08/12/19 18:00 08/14/19 06:12 Lasix IV 40 mg 0600,1800 TREY Administration Hydralazine HCl 5 mg 08/12/19 15:35 Apresoline IV Q30MIN PRN HTN SYS>180 SONA>100 Cefepime HCl 2 gm in 100 mls @ 200 mls/hr 08/12/19 13:00 08/14/19 06:11 Cefepime/Ns 2 Gm/100 Ml IV 200 mls/hr Q8HR TREY Administration Protocol Vancomycin HCl 1 gm in 250 mls @ 166.667 mls/hr 08/13/19 04:00 08/14/19 04:19 Vancomycin/Ns 1 Gm/250 Ml IV 166.667 mls/hr Q12H TREY Administration Metoprolol Tartrate 5 mg 08/13/19 21:25 Metoprolol IV Q6H PRN Tachyarrhythmias Morphine Sulfate 2 mg 08/12/19 18:25 Morphine IV Q4H PRN Pain , Severe (7-10) Ondansetron HCl 4 mg 08/12/19 18:24 Zofran IV Q8H PRN N/V unrelieved by Reglan Oxycodone/Acetaminophen 1 tab 08/12/19 15:35 08/13/19 19:21 Percocet 5/325 PO 1 tab Q6H PRN Administration Pain, Moderate (4-6)
--- NOTE | 2019-08-14 08:11 | Consultation ---
REFERRING PHYSICIAN: Dr. Lew. REASON FOR CONSULTATION: Liver lesion, history of uterine cancer. HISTORY OF PRESENT ILLNESS: I saw the patient, a 53-year-old female, who is originally from [place] and was treated in [place]. She relocated here to her friend. The patient has past history of uterine cancer with mets to the bone and liver. This was diagnosed in December 2018. She had a port placement done; however, she did not receive chemotherapy. She had infection of the port one and this was removed and a new port was placed, history of MRSA, history of spinal abscess, history of pulmonary embolism, on Eliquis. The patient came to the hospital because of coughing, fever, weakness. I have been asked to evaluate the patient. The patient does not know much detail about her cancer. She states she had surgery, but no chemotherapy, no radiation. REVIEW OF SYSTEMS: No fever, chills. Weight loss present. Abdominal pain, nausea, vomiting present. Cough present. Congestion present. No bleeding. PAST MEDICAL HISTORY: Stage 4 uterine cancer with mets to liver and bones. PAST SURGICAL HISTORY: Hysterectomy. SOCIAL HISTORY: Lives alone, has relocated from [place] to her friends from [place] who lives in [place]. FAMILY HISTORY: Noncontributory. ALLERGIES: None. MEDICATIONS: Reviewed. PHYSICAL EXAMINATION: VITAL SIGNS: Temperature 97, pulse 134, respirations 30, BP 92/65. HEENT: No pallor, no icterus. NECK: No neck lymph nodes. Port present. HEART: S1, S2. LUNGS: Clear to auscultation. ABDOMEN: Soft. EXTREMITIES: No calf tenderness. LABORATORY DATA: White cell 7, hemoglobin 11, MCV 87, platelets 327, potassium 4.1, creatinine 0.9, calcium 8.3. RADIOLOGY: CTA chest was done. This shows no PE, possible pulmonary edema, right lobe of liver lesion present, large complex thyroid nodule. ASSESSMENT AND PLAN: 1. History of uterine cancer. Notes mention of stage 4 with mets to bone and liver. Radiology now shows a 9.7 right hepatic lobe lesion. We will try to see if this can be biopsied or we will also try to get notes from [place]. 2. Large thyroid lesion 5.3 cm. 3. Admitted with fever, cough, abdominal pain. 4. The patient has a port. The patient had port infection in the past and this was removed. 5. Radiology suggests possible pneumonia versus pulmonary edema. 6. History of pulmonary embolism, was on Eliquis, now there is no pulmonary embolism. The patient has multiple issues. She says no chemotherapy has been given. We will try to get notes from [place] and follow the patient in outpatient setting once she is better. She is self-pay and this will be challenging for her. She has option of going to [employer] or to get paper works done for Medicaid/disability. JOB# [id number] NM/NTS
--- NOTE | 2019-08-14 08:56 | Event Note ---
Date: 08/14/[address]-guided procedures today as the machine is down. We'll reattempt tomorrow.
[2019-08-14] MEDS: APIXABAN 5 MG TAB PO SCH ×2 (10:01→22:01)
[2019-08-14] MEDS: FAMOTIDINE 10 MG TAB PO SCH ×2 (10:01→22:01)
[2019-08-14] MEDS: IPRATROPIUM/ALBUTEROL SULFATE 3 ML AMPUL.NEB IH SCH ×3 (11:25→23:30)
--- NOTE | 2019-08-14 14:17 | Progress Note ---
Assessment and Plan Assessment and plan: Acute respiratory failure with hypoxia - likely from PNA vs Pneumonitis vs Pulmonary edema - cont supplemental O2, scheduled nebs, iv abx, lasix iv - blood cultures neg so far Sepsis evidenced by HR>90, fever:101F -Probably secondary to pneumonia -Patient has prior history of MRSA bacteremia -Continue IV antibiotics with vancomycin and cefepime -Blood cultures neg so far Acute diastolic heart failure with EF of 55-60%, POA -On IV diuretic -Echo showed EF of 55-60% with abnormal diastolic dysfunction H/o PE -cont eliquis Uterine Cancer with mets to bone and liver s/p chemo and total hysterectomy - Oncology, Dr Sun consulted Possible UTI -Urine culture neg RT hepatic lesion -Differentials include metastasis versus abscess -CT-guided biopsy pending Thyroid nodule -Thyroid US showed multiple nodules, none large to be biopsied -For outpatient follow-up DVT ppx: SCD Very poor prognosis Full code status Disposition: Patient's family have consented to hospice care. 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 She denies chest pain Hospitalist Physical - Constitutional Vitals: Temp Pulse Resp BP Pulse Ox 99.2 F 132 H 40 H 97/66 95 08/14/19 12:10 08/14/19 13:36 08/14/19 13:36 08/14/19 12:10 08/14/19 12:10 General appearance: Present: no acute distress - EENT Eyes: Present: PERRL, EOM intact ENT: hearing intact, clear oral mucosa - Neck Neck: Present: supple - Respiratory Respiratory effort: normal - Cardiovascular Rhythm: regular (with tachycardia) Heart Sounds: Present: S1 & S2 - Extremities Extremities: No edema - Abdominal General gastrointestinal: soft, non-tender, normal bowel sounds - Integumentary Integumentary: Present: warm, dry - Psychiatric Psychiatric: cooperative - Neurologic Neurologic: moves all extremities Results - Labs CBC & Chem 7: 08/12/19 11:36 08/14/19 00:50 Labs: Laboratory Last Values WBC 7.4 K/mm3 (4.5-11.0) 08/12/19 11:36 RBC 3.93 M/mm3 (3.65-5.03) 08/12/19 11:36 Hgb 11.1 gm/dl (10.1-14.3) 08/12/19 11:36 Hct 34.3 % (30.3-42.9) 08/12/19 11:36 MCV 87 fl (79-97) 08/12/19 11:36 MCH 28 pg (28-32) 08/12/19 11:36 MCHC 32 % (30-34) 08/12/19 11:36 RDW 19.2 % (13.2-15.2) H 08/12/19 11:36 Plt Count 327 K/mm3 (140-440) 08/12/19 11:36 Lymph % (Auto) 8.6 % (13.4-35.0) L 08/12/19 11:36 [place] % (Auto) 5.0 % (0.0-7.3) 08/12/19 11:36 Eos % (Auto) 2.7 % (0.0-4.3) 08/12/19 11:36 Baso % (Auto) 0.4 % (0.0-1.8) 08/12/19 11:36 Lymph # 0.6 K/mm3 (1.2-5.4) L 08/12/19 11:36 [place] # 0.4 K/mm3 (0.0-0.8) 08/12/19 11:36 Eos # 0.2 K/mm3 (0.0-0.4) 08/12/19 11:36 Baso # 0.0 K/mm3 (0.0-0.1) 08/12/19 11:36 Seg Neutrophils % 83.3 % (40.0-70.0) H 08/12/19 11:36 Seg Neutrophils # 6.2 K/mm3 (1.8-7.7) 08/12/19 11:36 PT 19.8 Sec. (12.2-14.9) H 08/12/19 11:36 INR 1.71 (0.87-1.13) H 08/12/19 11:36 VBG pH 7.405 (7.320-7.420) 08/12/19 11:36 Sodium 132 mmol/L (137-145) L 08/14/19 00:50 Potassium 3.7 mmol/L (3.6-5.0) 08/14/19 00:50 Chloride 99.6 mmol/L (98-107) 08/14/19 00:50 Carbon Dioxide 19 mmol/L (22-30) L 08/14/19 00:50 Anion Gap 17 mmol/L 08/14/19 00:50 BUN 20 mg/dL (7-17) H 08/14/19 00:50 Creatinine 0.9 mg/dL (0.7-1.2) 08/14/19 00:50 Estimated GFR > 60 ml/min 08/14/19 00:50 BUN/Creatinine Ratio 22 % 08/14/19 00:50 Glucose 155 mg/dL (65-100) H 08/14/19 00:50 POC Glucose 107 (70-105) H 08/13/19 22:46 Lactic Acid 1.80 mmol/L (0.7-2.0) 08/12/19 14:35 Calcium 7.6 mg/dL (8.4-10.2) L 08/14/19 00:50 Magnesium 1.50 mg/dL (1.7-2.3) L 08/14/19 04:33 Total Bilirubin 0.90 mg/dL (0.1-1.2) 08/12/19 11:36 AST 71 units/L (5-40) H 08/12/19 11:36 ALT 35 units/L (7-56) 08/12/19 11:36 Alkaline Phosphatase 672 units/L (35-129) H 08/12/19 11:36 Troponin T < 0.010 ng/mL (0.00-0.029) 08/12/19 11:36 NT-Pro-B Natriuret Pep 403.6 pg/mL (0-900) 08/12/19 14:35 Total Protein 6.7 g/dL (6.3-8.2) 08/12/19 11:36 Albumin 2.6 g/dL (3.9-5) L 08/12/19 11:36 Albumin/Globulin Ratio 0.6 % 08/12/19 11:36 TSH 0.620 mlU/mL (0.270-4.200) 08/12/19 17:58 Free T4 1.40 ng/dL (0.76-1.46) 08/12/19 17:37 Urine Color Yellow (Yellow) 08/12/19 Unknown Urine Turbidity Slightly-cloudy (Clear) 08/12/19 Unknown Urine pH 7.0 (5.0-7.0) 08/12/19 Unknown Ur Specific [place] 1.014 (1.003-1.030) 08/12/19 Unknown Urine Protein <15 mg/dl mg/dL (Negative) 08/12/19 Unknown Urine Glucose (UA) Neg mg/dL (Negative) 08/12/19 Unknown Urine Ketones Neg mg/dL (Negative) 08/12/19 Unknown Urine Blood Sm (Negative) 08/12/19 Unknown Urine Nitrite Neg (Negative) 08/12/19 Unknown Urine Bilirubin Neg (Negative) 08/12/19 Unknown Urine Urobilinogen < 2.0 mg/dL (<2.0) 08/12/19 Unknown Ur Leukocyte Esterase Lg (Negative) 08/12/19 Unknown Urine WBC (Auto) 19.0 /HPF (0.0-6.0) H 08/12/19 Unknown Urine RBC (Auto) 4.0 /HPF (0.0-6.0) 08/12/19 Unknown U Epithel Cells (Auto) 1.0 /HPF (0-13.0) 08/12/19 Unknown Urine Bacteria (Auto) 1+ /HPF (Negative) 08/12/19 Unknown Active Medications - Current Medications Current Medications: Generic Name Dose Route Start Last Admin Trade Name Freq PRN Reason Stop Dose Admin Acetaminophen 650 mg 08/12/19 15:35 08/13/19 01:44 Tylenol PO 650 mg Q4H PRN Administration Pain MILD(1-3)/Fever >100.5/ESPANA Albuterol 2.5 mg 08/13/19 00:46 Proventil IH Q4HRT PRN Shortness Of Breath Albuterol/Ipratropium 1 ampul 08/13/19 08:00 08/14/19 13:36 Duoneb *Not For Prn Use* IH Not Given TIDRT TREY Apixaban 5 mg 08/12/19 22:00 08/14/19 10:01 Eliquis PO 5 mg Q12HR TREY Administration Protocol Famotidine 10 mg 08/12/19 22:00 08/14/19 10:01 Pepcid PO 10 mg BID TREY Administration Furosemide 40 mg 08/12/19 18:00 08/14/19 06:12 Lasix IV 40 mg 0600,1800 TREY Administration Hydralazine HCl 5 mg 08/12/19 15:35 Apresoline IV Q30MIN PRN HTN SYS>180 SONA>100 Cefepime HCl 2 gm in 100 mls @ 200 mls/hr 08/12/19 13:00 08/14/19 06:11 Cefepime/Ns 2 Gm/100 Ml IV 200 mls/hr Q8HR TREY Administration Protocol Vancomycin HCl 1 gm in 250 mls @ 166.667 mls/hr 08/13/19 04:00 08/14/19 04:19 Vancomycin/Ns 1 Gm/250 Ml IV 166.667 mls/hr Q12H TREY Administration Metoprolol Tartrate 5 mg 08/13/19 21:25 Metoprolol IV Q6H PRN Tachyarrhythmias Morphine Sulfate 2 mg 08/12/19 18:25 Morphine IV Q4H PRN Pain , Severe (7-10) Ondansetron HCl 4 mg 08/12/19 18:24 Zofran IV Q8H PRN N/V unrelieved by Reglan Oxycodone/Acetaminophen 1 tab 08/12/19 15:35 08/13/19 19:21 Percocet 5/325 PO 1 tab Q6H PRN Administration Pain, Moderate (4-6) Nutrition/Malnutrition Assess - Dietary Evaluation Nutrition/Malnutrition Findings: Nutrition Notes Start: 08/13/19 12:05 Freq: Status: Active Protocol: Document 08/13/19 12:05 ASHWINI (Rec: 08/13/19 12:45 ASHWINI [id number]) Co-Sign 08/13/19 12:05 LP Nutrition Notes Need for Assessment generated from: MD Order,MST Initial or Follow up Assessment Other Pertinent Diagnosis Uterine cancer mets to bone and liver, SOB, abdominal pain Current Diet Regular Labs/Tests Na 134 BUN 20 Pertinent Medications Reviewed Height 4 ft 9 in Weight 58 kg [place] Body Weight (kg) 38.63 BMI 27.6 Intake Prior to Admission Poor Weight change and time frame Pt stated she lost 57lb within a month. Pt said she didn't know her usual body wt. Weight Status Overweight Subjective/Other Information RD consult for malnutrition and poor oral intake per MD. Pt stated she ate 25% of dinner and 1 ensure last night . Pt ate 25% of breakfast and 1 ensure. 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 As Evidenced by Signs and Symptoms >5% of wt loss in a month, mild muscle mass depletion, < 50% of estimated energy requirements. Is patient on ventilator? No Is Patient Ambulatory and/or Out of Bed Yes REE-([facility]-ambulatory/OOB) [ 1363.544 NUTR.MSJOOB] Calculation Used for Recommendations [facility] Additional Notes Protein: 70-87g/kg (1.2-1.5g/ kg) Fluid: 1ml/kcal Nutrition Intervention Change Diet Order: Continue current Add Supplement/Snack (indicate name/kcal Ensure Enlive Vanilla BID /protein ) Provides kCal: 700 Provides Protein (gm) 40 Goal #1 Meet at least 90% of energy and protein needs via PO and ONS intakes Anticipated Discharge Needs: Regular diet Follow-Up By: 08/15/19 Additional Comments F/U for PO and ONS intakes
[2019-08-15] MEDS: oxyCODONE /ACETAMINOPHEN 5-325MG TAB PO PRN (00:09)
[2019-08-15] MEDS: CEFEPIME/NS 2 GM/100 ML 2 GM/100 ML BAG IV SCH ×3 (07:20→22:08)
[2019-08-15] MEDS: FUROSEMIDE 40 MG/4 ML INJ IV SCH ×2 (07:27→17:19)
--- NOTE | 2019-08-15 07:45 | Hem/Onc Progress Note ---
Assessment and Plan 1. History of uterine cancer. Notes mention of stage 4 with mets to bone and liver. Radiology now shows a 9.7 right hepatic lobe lesion. 2. Large thyroid lesion 5.3 cm. 3. Admitted with fever, cough, abdominal pain. 4. The patient has a port. The patient had port infection in the past and this was removed. 5. Radiology suggests possible pneumonia versus pulmonary edema. 6. History of pulmonary embolism, was on Eliquis, now there is no pulmonary embolism. The patient has multiple issues. She says no chemotherapy has been given. family had a note which gives the sequence of events fever - infection issues d/w dr reza on 08/14 hospice planned - Patient Problems (1) Uterine cancer Current Visit: Yes Status: Acute Subjective Date of service: 08/15/19 Principal diagnosis: uterine ca Interval history: weak Objective - Exam Narrative Exam: Pain - none General appearance - awake Performance status dependent for care Eyes - no icterus ENT - no thrush LNs cervical not palpable Neck - no LN Respiratory Normal Breath sounds - CTA anteriorly CVS S1 S2 + Extremities no edema General GI Soft Rectal deferred female - deferred Skin warm PORT + Musculoskeletal - moving limbs Neurologically awake - Constitutional Vitals: Last Vital Signs Temp 99.1 F 08/15/19 06:17 Pulse 119 H 08/15/19 06:17 Resp 26 H 08/15/19 07:01 BP 91/62 08/15/19 06:17 Pulse Ox 98 08/15/19 07:01 Medications & Allergies - Medications Allergies/Adverse Reactions: Allergies No Known Allergies Allergy (Verified 08/12/19 11:21) Home Medications: Home Medications Medication Instructions Recorded Confirmed Last Taken Type No Known Home Medications [No 08/13/19 08/13/19 Unknown History Reported Home Medications] Active Medications: Generic Name Dose Route Start Last Admin Trade Name Freq PRN Reason Stop Dose Admin Acetaminophen 650 mg 08/12/19 15:35 08/13/19 01:44 Tylenol PO 650 mg Q4H PRN Administration Pain MILD(1-3)/Fever >100.5/ESPANA Albuterol 2.5 mg 08/13/19 00:46 Proventil IH Q4HRT PRN Shortness Of Breath Albuterol/Ipratropium 1 ampul 08/13/19 08:00 08/14/19 23:30 Duoneb *Not For Prn Use* IH 1 ampul TIDRT TREY Administration Apixaban 5 mg 08/12/19 22:00 08/14/19 22:01 Eliquis PO 5 mg Q12HR TREY Administration Protocol Famotidine 10 mg 08/12/19 22:00 08/14/19 22:01 Pepcid PO 10 mg BID TREY Administration Furosemide 40 mg 08/12/19 18:00 08/15/19 07:27 Lasix IV Not Given 0600,1800 [facility] Hydralazine HCl 5 mg 08/12/19 15:35 Apresoline IV Q30MIN PRN HTN SYS>180 SONA>100 Cefepime HCl 2 gm in 100 mls @ 200 mls/hr 08/12/19 13:00 08/15/19 07:20 Cefepime/Ns 2 Gm/100 Ml IV 200 mls/hr Q8HR TREY Administration Protocol Vancomycin HCl 1 gm in 250 mls @ 166.667 mls/hr 08/13/19 04:00 08/14/19 16:54 Vancomycin/Ns 1 Gm/250 Ml IV 166.667 mls/hr Q12H TREY Administration Metoprolol Tartrate 5 mg 08/13/19 21:25 08/15/19 00:12 Metoprolol IV 5 mg Q6H PRN Administration Tachyarrhythmias Morphine Sulfate 2 mg 08/12/19 18:25 Morphine IV Q4H PRN Pain , Severe (7-10) Ondansetron HCl 4 mg 08/12/19 18:24 Zofran IV Q8H PRN N/V unrelieved by [place] Oxycodone/Acetaminophen 1 tab 08/12/19 15:35 08/15/19 00:09 Percocet 5/325 PO 1 tab Q6H PRN Administration Pain, Moderate (4-6)
[2019-08-15] MEDS: IPRATROPIUM/ALBUTEROL SULFATE 3 ML AMPUL.NEB IH SCH ×3 (07:52→21:16)
[2019-08-15 08:18] LABS: BUN/Creatinine Ratio 31; Blood Urea Nitrogen 25 mg/dL (7-17); Calcium 8.1 mg/dL (8.4-10.2); Hemolysis Index 38
[2019-08-15] MEDS: VANCOMYCIN/NS 1 GM/250 ML 1 GM/250 ML BAG IV SCH (08:31)
--- NOTE | 2019-08-15 09:03 | Event Note ---
Date: 08/15/19 Patient's events reviewed. Patient and family considering hospice. At the lengthy discussion with patient regarding liver biopsy. The patient does wish to proceed with her liver biopsy. Discussed risks and benefits.
--- NOTE | 2019-08-15 09:13 | Event Note ---
Date: 08/15/19 Holding off on biopsy right now per oncology request. If hepatic biopsy is needed, please reconsult
[2019-08-15] MEDS: VANCOMYCIN 750 MG in SODIUM CHLORIDE 0.9% 250ML 250 ML IV SCH ×2 (09:49→22:54)
[2019-08-15] MEDS: APIXABAN 5 MG TAB PO SCH ×2 (10:48→22:09)
[2019-08-15] MEDS: FAMOTIDINE 10 MG TAB PO SCH ×2 (10:48→22:09)
--- NOTE | 2019-08-15 14:44 | Progress Note ---
Assessment and Plan Assessment and plan: Acute respiratory failure with hypoxia - likely from PNA vs Pneumonitis vs Pulmonary edema - cont supplemental O2, scheduled nebs, iv abx, lasix iv - blood cultures neg so far Sepsis evidenced by HR>90, fever:101F, POA -Probably secondary to pneumonia -Patient has prior history of MRSA bacteremia -Continue IV antibiotics with vancomycin and cefepime -Blood cultures neg so far Acute diastolic heart failure with EF of 55-60%, POA -On IV diuretic -Echo showed EF of 55-60% with abnormal diastolic dysfunction H/o PE -cont eliquis Uterine Cancer with mets to bone and liver s/p chemo and total hysterectomy - Oncology, Dr Sun following Possible UTI -Urine culture neg RT hepatic lesion -Differentials include metastasis versus abscess -CT-guided biopsy on hold Thyroid nodule -Thyroid US showed multiple nodules, none large to be biopsied -For outpatient follow-up DVT ppx: SCD Very poor prognosis DNR/DNI Disposition: Patient's family have consented to hospice care. assistant department manager looking for inpatient hospice care facility that will accept the patient as a scholarahip bed since she's uninsured. History Interval history: No significant change. Pt continues to be on ventimask and with sob Hospitalist Physical - Constitutional Vitals: Temp Pulse Resp BP Pulse Ox 99.1 F 114 H 20 91/62 97 08/15/19 06:17 08/15/19 07:52 08/15/19 07:52 08/15/19 06:17 08/15/19 08:00 General appearance: Present: mild distress - EENT Eyes: Present: PERRL, EOM intact ENT: hearing intact, clear oral mucosa - Neck Neck: Present: supple - Respiratory Respiratory effort: normal Respiratory: bilateral: diminished - Cardiovascular Rhythm: regular (with tachycardic) Heart Sounds: Present: S1 & S2 - Extremities Extremities: No edema - Abdominal General gastrointestinal: soft, non-tender, non-distended, normal bowel sounds - Integumentary Integumentary: Present: warm, dry - Psychiatric Psychiatric: cooperative - Neurologic Neurologic: moves all extremities Results - Labs CBC & Chem 7: 08/12/19 11:36 08/15/19 07:27 Labs: Laboratory Last Values WBC 7.4 K/mm3 (4.5-11.0) 08/12/19 11:36 RBC 3.93 M/mm3 (3.65-5.03) 08/12/19 11:36 Hgb 11.1 gm/dl (10.1-14.3) 08/12/19 11:36 Hct 34.3 % (30.3-42.9) 08/12/19 11:36 MCV 87 fl (79-97) 08/12/19 11:36 MCH 28 pg (28-32) 08/12/19 11:36 MCHC 32 % (30-34) 08/12/19 11:36 RDW 19.2 % (13.2-15.2) H 08/12/19 11:36 Plt Count 327 K/mm3 (140-440) 08/12/19 11:36 Lymph % (Auto) 8.6 % (13.4-35.0) L 08/12/19 11:36 [place] % (Auto) 5.0 % (0.0-7.3) 08/12/19 11:36 Eos % (Auto) 2.7 % (0.0-4.3) 08/12/19 11:36 Baso % (Auto) 0.4 % (0.0-1.8) 08/12/19 11:36 Lymph # 0.6 K/mm3 (1.2-5.4) L 08/12/19 11:36 [place] # 0.4 K/mm3 (0.0-0.8) 08/12/19 11:36 Eos # 0.2 K/mm3 (0.0-0.4) 08/12/19 11:36 Baso # 0.0 K/mm3 (0.0-0.1) 08/12/19 11:36 Seg Neutrophils % 83.3 % (40.0-70.0) H 08/12/19 11:36 Seg Neutrophils # 6.2 K/mm3 (1.8-7.7) 08/12/19 11:36 PT 19.8 Sec. (12.2-14.9) H 08/12/19 11:36 INR 1.71 (0.87-1.13) H 08/12/19 11:36 VBG pH 7.405 (7.320-7.420) 08/12/19 11:36 Sodium 136 mmol/L (137-145) L 08/15/19 07:27 Potassium 3.9 mmol/L (3.6-5.0) 08/15/19 07:27 Chloride 103.1 mmol/L (98-107) 08/15/19 07:27 Carbon Dioxide 20 mmol/L (22-30) L 08/15/19 07:27 Anion Gap 17 mmol/L 08/15/19 07:27 BUN 25 mg/dL (7-17) H 08/15/19 07:27 Creatinine 0.8 mg/dL (0.7-1.2) 08/15/19 07:27 Estimated GFR > 60 ml/min 08/15/19 07:27 BUN/Creatinine Ratio 31 % 08/15/19 07:27 Glucose 95 mg/dL (65-100) 08/15/19 07:27 POC Glucose 107 (70-105) H 08/13/19 22:46 Lactic Acid 1.80 mmol/L (0.7-2.0) 08/12/19 14:35 Calcium 8.1 mg/dL (8.4-10.2) L 08/15/19 07:27 Magnesium 1.50 mg/dL (1.7-2.3) L 08/14/19 04:33 Total Bilirubin 0.90 mg/dL (0.1-1.2) 08/12/19 11:36 AST 71 units/L (5-40) H 08/12/19 11:36 ALT 35 units/L (7-56) 08/12/19 11:36 Alkaline Phosphatase 672 units/L (35-129) H 08/12/19 11:36 Troponin T < 0.010 ng/mL (0.00-0.029) 08/12/19 11:36 NT-Pro-B Natriuret Pep 403.6 pg/mL (0-900) 08/12/19 14:35 Total Protein 6.7 g/dL (6.3-8.2) 08/12/19 11:36 Albumin 2.6 g/dL (3.9-5) L 08/12/19 11:36 Albumin/Globulin Ratio 0.6 % 08/12/19 11:36 TSH 0.620 mlU/mL (0.270-4.200) 08/12/19 17:58 Free T4 1.40 ng/dL (0.76-1.46) 08/12/19 17:37 Urine Color Yellow (Yellow) 08/12/19 Unknown Urine Turbidity Slightly-cloudy (Clear) 08/12/19 Unknown Urine pH 7.0 (5.0-7.0) 08/12/19 Unknown Ur Specific [place] 1.014 (1.003-1.030) 08/12/19 Unknown Urine Protein <15 mg/dl mg/dL (Negative) 08/12/19 Unknown Urine Glucose (UA) Neg mg/dL (Negative) 08/12/19 Unknown Urine Ketones Neg mg/dL (Negative) 08/12/19 Unknown Urine Blood Sm (Negative) 08/12/19 Unknown Urine Nitrite Neg (Negative) 08/12/19 Unknown Urine Bilirubin Neg (Negative) 08/12/19 Unknown Urine Urobilinogen < 2.0 mg/dL (<2.0) 08/12/19 Unknown Ur Leukocyte Esterase Lg (Negative) 08/12/19 Unknown Urine WBC (Auto) 19.0 /HPF (0.0-6.0) H 08/12/19 Unknown Urine RBC (Auto) 4.0 /HPF (0.0-6.0) 08/12/19 Unknown U Epithel Cells (Auto) 1.0 /HPF (0-13.0) 08/12/19 Unknown Urine Bacteria (Auto) 1+ /HPF (Negative) 08/12/19 Unknown Vancomycin Trough 21.9 ug/mL (5.0-20.0) H 08/15/19 07:27 Active Medications - Current Medications Current Medications: Generic Name Dose Route Start Last Admin Trade Name Freq PRN Reason Stop Dose Admin Acetaminophen 650 mg 08/12/19 15:35 08/13/19 01:44 Tylenol PO 650 mg Q4H PRN Administration Pain MILD(1-3)/Fever >100.5/ESPANA Albuterol 2.5 mg 08/13/19 00:46 Proventil IH Q4HRT PRN Shortness Of Breath Albuterol/Ipratropium 1 ampul 08/13/19 08:00 08/15/19 07:52 Duoneb *Not For Prn Use* IH 1 ampul TIDRT TREY Administration Apixaban 5 mg 08/12/19 22:00 08/15/19 10:48 Eliquis PO 5 mg Q12HR TREY Administration Protocol Famotidine 10 mg 08/12/19 22:00 08/15/19 10:48 Pepcid PO 10 mg BID TREY Administration Furosemide 40 mg 08/12/19 18:00 08/15/19 07:27 Lasix IV Not Given 0600,1800 TREY Hydralazine HCl 5 mg 08/12/19 15:35 Apresoline IV Q30MIN PRN HTN SYS>180 SONA>100 Cefepime HCl 2 gm in 100 mls @ 200 mls/hr 08/12/19 13:00 08/15/19 13:39 Cefepime/Ns 2 Gm/100 Ml IV 200 mls/hr Q8HR TREY Administration Protocol Vancomycin HCl 750 mg/ Sodium 265 mls @ 166.667 mls/hr 08/15/19 10:00 08/15/19 09:49 Chloride IV 166.667 mls/hr Q12HR TREY Administration Metoprolol Tartrate 5 mg 08/13/19 21:25 08/15/19 00:12 Metoprolol IV 5 mg Q6H PRN Administration Tachyarrhythmias Morphine Sulfate 2 mg 08/12/19 18:25 Morphine IV Q4H PRN Pain , Severe (7-10) Ondansetron HCl 4 mg 08/12/19 18:24 Zofran IV Q8H PRN N/V unrelieved by Reglan Oxycodone/Acetaminophen 1 tab 08/12/19 15:35 08/15/19 00:09 Percocet 5/325 PO 1 tab Q6H PRN Administration Pain, Moderate (4-6) Nutrition/Malnutrition Assess - Dietary Evaluation Nutrition/Malnutrition Findings: Nutrition Notes Start: 08/13/19 12:05 Freq: Status: Active Protocol: Document 08/15/19 11:04 AP (Rec: 08/15/19 11:20 AP [id number]) Co-Sign 08/15/19 11:04 LM Nutrition Notes Need for Assessment generated from: Order,MST Initial or Follow up Reassessment Other Pertinent Diagnosis Uterine cancer mets to bone and liver, SOB, abdominal pain Current Diet Regular Labs/Tests NA 136 BUN 25 BG 155 Pertinent Medications Reviewed Height 4 ft 9 in Weight 60.1 kg [place] Body Weight (kg) 38.63 BMI 28.6 Intake Prior to Admission Poor Weight Status Overweight Subjective/Other Information F/U for PO/ONS intakes. Pt NPO upon room visit. Pt stated she ate no dinner last night. Pt RN stated pt consumed 75% of lunch tray and 100% of ONS. Percent of energy/protein needs met: 100% kcal 100% PRO Burn Absent Trauma Absent Current % PO Fair (50-74%) Minimum of two criteria Yes Energy Intake (severe) < or equal to 50% Estimated Energy Requirement > or equal to 5 days Interpretation of Weight Loss (non- 7.5% in 3 months severe) Interpretation of Weight Loss (severe) >5% in 1 month Muscle Mass Mild Depletion (non-severe) #1 Nutrition Diagnosis Malnutrition Diagnosis Progress(for reassessment Continues documentation) Is patient on ventilator? No Is Patient Ambulatory and/or Out of Bed Yes REE-([facility]-ambulatory/OOB) [ 1390.844 NUTR.MSJOOB] Calculation Used for Recommendations [facility] Additional Notes Protein: 70-87g/kg (1.2-1.5g/ kg) Fluid: 1ml/kcal Nutrition Intervention Change Diet Order: Continue current Add Supplement/Snack (indicate name/kcal Ensure Enlive Vanilla BID /protein ) Provides kCal: 700 Provides Protein (gm) 40 Goal #1 Pt continue to meet >90% kcal/ PRO needs via PO/ONS. Anticipated Discharge Needs: Regular diet Follow-Up By: 08/22/19 Additional Comments F/U for PO and ONS intakes.
[2019-08-16 02:17] LABS: BUN/Creatinine Ratio 30; Blood Urea Nitrogen 27 mg/dL (7-17); Calcium 7.9 mg/dL (8.4-10.2); Hemolysis Index 12
[2019-08-16] MEDS: CEFEPIME/NS 2 GM/100 ML 2 GM/100 ML BAG IV SCH ×3 (05:17→21:35)
[2019-08-16] MEDS: FUROSEMIDE 40 MG/4 ML INJ IV SCH ×2 (05:24→17:52)
[2019-08-16] MEDS: IPRATROPIUM/ALBUTEROL SULFATE 3 ML AMPUL.NEB IH SCH ×3 (09:10→21:13)
[2019-08-16] MEDS: oxyCODONE /ACETAMINOPHEN 5-325MG TAB PO PRN (09:57)
[2019-08-16] MEDS: APIXABAN 5 MG TAB PO SCH ×2 (09:57→21:35)
[2019-08-16] MEDS: FAMOTIDINE 10 MG TAB PO SCH ×2 (09:57→21:35)
[2019-08-16] MEDS: VANCOMYCIN 750 MG in SODIUM CHLORIDE 0.9% 250ML 250 ML IV SCH (09:57)
[2019-08-16] MEDS: POTASSIUM CHLORIDE ER 20 MEQ TAB PO SCH ×2 (11:50→21:35)
--- NOTE | 2019-08-16 13:39 | Progress Note ---
Assessment and Plan Assessment and plan: Acute respiratory failure with hypoxia - likely from PNA vs Pneumonitis vs Pulmonary edema - repeat CXR on showed slight improvement - cont supplemental O2 taper, nebs, iv abx and lasix iv - blood cultures neg so far Sepsis -Probably secondary to pneumonia -Continue IV cefepime. Vanc d/sapphire since cultures are neg -Blood cultures neg so far Acute diastolic heart failure with EF of 55-60% -Improving -Cont IV diuretics -Echo showed EF of 55-60% with abnormal diastolic dysfunction H/o PE -cont eliquis Uterine Cancer with mets to bone and liver s/p chemo and total hysterectomy - Oncology, Dr Sun following Possible UTI -Urine culture not obtained RT hepatic lesion -Differentials include metastasis versus abscess -CT-guided biopsy held Thyroid nodule -Thyroid US showed multiple nodules, none large to be biopsied -For outpatient follow-up Hypokalemia -On repletion, we'll monitor level Hyponatremia -Improved Metabolic acidosis -On oral supplements, will monitor level DVT ppx: SCD very poor prognosis DNR/DNI Disposition: No scholarship bed available for inpatient hospice per onsite case manager. Pending arrangement for home hospice care. History Interval history: Patient has been weaned off ventimask and currently saturating well on nasal cannula, 4 L Hospitalist Physical - Constitutional Vitals: Temp Pulse Resp BP Pulse Ox 98.7 F 116 H 20 102/70 87 08/16/19 11:45 08/16/19 11:45 08/16/19 11:45 08/16/19 11:45 08/16/19 11:45 General appearance: Present: no acute distress - EENT Eyes: Present: PERRL, EOM intact ENT: clear oral mucosa - Neck Neck: Present: supple - Respiratory Respiratory effort: normal Respiratory: bilateral: diminished (but improving) - Cardiovascular Rhythm: regular (with tachycardia) Heart Sounds: Present: S1 & S2 - Extremities Extremities: No edema - Abdominal General gastrointestinal: soft, non-tender, normal bowel sounds - Integumentary Integumentary: Present: warm, dry - Psychiatric Psychiatric: cooperative - Neurologic Neurologic: moves all extremities Results - Labs CBC & Chem 7: 08/12/19 11:36 08/16/19 01:41 Labs: Laboratory Last Values WBC 7.4 K/mm3 (4.5-11.0) 08/12/19 11:36 RBC 3.93 M/mm3 (3.65-5.03) 08/12/19 11:36 Hgb 11.1 gm/dl (10.1-14.3) 08/12/19 11:36 Hct 34.3 % (30.3-42.9) 08/12/19 11:36 MCV 87 fl (79-97) 08/12/19 11:36 MCH 28 pg (28-32) 08/12/19 11:36 MCHC 32 % (30-34) 08/12/19 11:36 RDW 19.2 % (13.2-15.2) H 08/12/19 11:36 Plt Count 327 K/mm3 (140-440) 08/12/19 11:36 Lymph % (Auto) 8.6 % (13.4-35.0) L 08/12/19 11:36 [place] % (Auto) 5.0 % (0.0-7.3) 08/12/19 11:36 Eos % (Auto) 2.7 % (0.0-4.3) 08/12/19 11:36 Baso % (Auto) 0.4 % (0.0-1.8) 08/12/19 11:36 Lymph # 0.6 K/mm3 (1.2-5.4) L 08/12/19 11:36 [place] # 0.4 K/mm3 (0.0-0.8) 08/12/19 11:36 Eos # 0.2 K/mm3 (0.0-0.4) 08/12/19 11:36 Baso # 0.0 K/mm3 (0.0-0.1) 08/12/19 11:36 Seg Neutrophils % 83.3 % (40.0-70.0) H 08/12/19 11:36 Seg Neutrophils # 6.2 K/mm3 (1.8-7.7) 08/12/19 11:36 PT 19.8 Sec. (12.2-14.9) H 08/12/19 11:36 INR 1.71 (0.87-1.13) H 08/12/19 11:36 VBG pH 7.405 (7.320-7.420) 08/12/19 11:36 Sodium 136 mmol/L (137-145) L 08/16/19 01:41 Potassium 3.5 mmol/L (3.6-5.0) L 08/16/19 01:41 Chloride 101.5 mmol/L (98-107) 08/16/19 01:41 Carbon Dioxide 19 mmol/L (22-30) L 08/16/19 01:41 Anion Gap 19 mmol/L 08/16/19 01:41 BUN 27 mg/dL (7-17) H 08/16/19 01:41 Creatinine 0.9 mg/dL (0.7-1.2) 08/16/19 01:41 Estimated GFR > 60 ml/min 08/16/19 01:41 BUN/Creatinine Ratio 30 % 08/16/19 01:41 Glucose 108 mg/dL (65-100) H 08/16/19 01:41 POC Glucose 107 (70-105) H 08/13/19 22:46 Lactic Acid 1.80 mmol/L (0.7-2.0) 08/12/19 14:35 Calcium 7.9 mg/dL (8.4-10.2) L 08/16/19 01:41 Magnesium 1.70 mg/dL (1.7-2.3) 08/16/19 01:47 Total Bilirubin 0.90 mg/dL (0.1-1.2) 08/12/19 11:36 AST 71 units/L (5-40) H 08/12/19 11:36 ALT 35 units/L (7-56) 08/12/19 11:36 Alkaline Phosphatase 672 units/L (35-129) H 08/12/19 11:36 Troponin T < 0.010 ng/mL (0.00-0.029) 08/12/19 11:36 NT-Pro-B Natriuret Pep 403.6 pg/mL (0-900) 08/12/19 14:35 Total Protein 6.7 g/dL (6.3-8.2) 08/12/19 11:36 Albumin 2.6 g/dL (3.9-5) L 08/12/19 11:36 Albumin/Globulin Ratio 0.6 % 08/12/19 11:36 TSH 0.620 mlU/mL (0.270-4.200) 08/12/19 17:58 Free T4 1.40 ng/dL (0.76-1.46) 08/12/19 17:37 Urine Color Yellow (Yellow) 08/12/19 Unknown Urine Turbidity Slightly-cloudy (Clear) 08/12/19 Unknown Urine pH 7.0 (5.0-7.0) 08/12/19 Unknown Ur Specific [place] 1.014 (1.003-1.030) 08/12/19 Unknown Urine Protein <15 mg/dl mg/dL (Negative) 08/12/19 Unknown Urine Glucose (UA) Neg mg/dL (Negative) 08/12/19 Unknown Urine Ketones Neg mg/dL (Negative) 08/12/19 Unknown Urine Blood Sm (Negative) 08/12/19 Unknown Urine Nitrite Neg (Negative) 08/12/19 Unknown Urine Bilirubin Neg (Negative) 08/12/19 Unknown Urine Urobilinogen < 2.0 mg/dL (<2.0) 08/12/19 Unknown Ur Leukocyte Esterase Lg (Negative) 08/12/19 Unknown Urine WBC (Auto) 19.0 /HPF (0.0-6.0) H 08/12/19 Unknown Urine RBC (Auto) 4.0 /HPF (0.0-6.0) 08/12/19 Unknown U Epithel Cells (Auto) 1.0 /HPF (0-13.0) 08/12/19 Unknown Urine Bacteria (Auto) 1+ /HPF (Negative) 08/12/19 Unknown Vancomycin Trough 21.9 ug/mL (5.0-20.0) H 08/15/19 07:27 Active Medications - Current Medications Current Medications: Generic Name Dose Route Start Last Admin Trade Name Pieterq PRN Reason Stop Dose Admin Acetaminophen 650 mg 08/12/19 15:35 08/13/19 01:44 Tylenol PO 650 mg Q4H PRN Administration Pain MILD(1-3)/Fever >100.5/ESPANA Albuterol 2.5 mg 08/13/19 00:46 Proventil IH Q4HRT PRN Shortness Of Breath Albuterol/Ipratropium 1 ampul 08/13/19 08:00 08/16/19 09:10 Duoneb *Not For Prn Use* IH 1 ampul TIDRT TREY Administration Apixaban 5 mg 08/12/19 22:00 08/16/19 09:57 Eliquis PO 5 mg Q12HR TREY Administration Protocol Famotidine 10 mg 08/12/19 22:00 08/16/19 09:57 Pepcid PO 10 mg BID TREY Administration Furosemide 40 mg 08/12/19 18:00 08/16/19 05:24 Lasix IV Not Given 0600,1800 TREY Hydralazine HCl 5 mg 08/12/19 15:35 Apresoline IV Q30MIN PRN HTN SYS>180 SONA>100 Cefepime HCl 2 gm in 100 mls @ 200 mls/hr 08/12/19 13:00 08/16/19 05:17 Cefepime/Ns 2 Gm/100 Ml IV 200 mls/hr Q8HR TREY Administration Protocol Metoprolol Tartrate 5 mg 08/13/19 21:25 08/15/19 00:12 Metoprolol IV 5 mg Q6H PRN Administration Tachyarrhythmias Morphine Sulfate 2 mg 08/12/19 18:25 Morphine IV Q4H PRN Pain , Severe (7-10) Ondansetron HCl 4 mg 08/12/19 18:24 Zofran IV Q8H PRN N/V unrelieved by Reglan Oxycodone/Acetaminophen 1 tab 08/12/19 15:35 08/16/19 09:57 Percocet 5/325 PO 1 tab Q6H PRN Administration Pain, Moderate (4-6) Potassium Chloride 40 meq 08/16/19 11:00 08/16/19 11:50 K-Dur PO 08/16/19 22:01 40 meq BID TREY Administration Nutrition/Malnutrition Assess - Dietary Evaluation Nutrition/Malnutrition Findings: Nutrition Notes Start: 08/13/19 12:05 Freq: Status: Active Protocol: Document 08/15/19 11:04 AP (Rec: 08/15/19 11:20 AP [id number]) Co-Sign 08/15/19 11:04 LM Nutrition Notes Need for Assessment generated from: MD Order,MST Initial or Follow up Reassessment Other Pertinent Diagnosis Uterine cancer mets to bone and liver, SOB, abdominal pain Current Diet Regular Labs/Tests NA 136 BUN 25 BG 155 Pertinent Medications Reviewed Height 4 ft 9 in Weight 60.1 kg [place] Body Weight (kg) 38.63 BMI 28.6 Intake Prior to Admission Poor Weight Status Overweight Subjective/Other Information F/U for PO/ONS intakes. Pt NPO upon room visit. Pt stated she ate no dinner last night. Pt RN stated pt consumed 75% of lunch tray and 100% of ONS. Percent of energy/protein needs met: 100% kcal 100% PRO Burn Absent Trauma Absent Current % PO Fair (50-74%) Minimum of two criteria Yes Energy Intake (severe) < or equal to 50% Estimated Energy Requirement > or equal to 5 days Interpretation of Weight Loss (non- 7.5% in 3 months severe) Interpretation of Weight Loss (severe) >5% in 1 month Muscle Mass Mild Depletion (non-severe) #1 Nutrition Diagnosis Malnutrition Diagnosis Progress(for reassessment Continues documentation) Is patient on ventilator? No Is Patient Ambulatory and/or Out of Bed Yes REE-([facility]-ambulatory/OOB) [ 1390.844 NUTR.[id number]] Calculation Used for Recommendations [facility] Additional Notes Protein: 70-87g/kg (1.2-1.5g/ kg) Fluid: 1ml/kcal Nutrition Intervention Change Diet Order: Continue current Add Supplement/Snack (indicate name/kcal Ensure Enlive Vanilla BID /protein ) Provides kCal: 700 Provides Protein (gm) 40 Goal #1 Pt continue to meet >90% kcal/ PRO needs via PO/ONS. Anticipated Discharge Needs: Regular diet Follow-Up By: 08/22/19 Additional Comments F/U for PO and ONS intakes.
[2019-08-16] MEDS: SODIUM BICARBONATE 650 MG TAB PO SCH ×2 (14:37→20:11)
[2019-08-17 02:51] LABS: BUN/Creatinine Ratio 31; Blood Urea Nitrogen 28 mg/dL (7-17); Calcium 8.2 mg/dL (8.4-10.2); Hemolysis Index 4
[2019-08-17] MEDS: FUROSEMIDE 40 MG/4 ML INJ IV SCH ×2 (05:22→17:20)
[2019-08-17] MEDS: CEFEPIME/NS 2 GM/100 ML 2 GM/100 ML BAG IV SCH ×3 (05:30→21:41)
[2019-08-17] MEDS: IPRATROPIUM/ALBUTEROL SULFATE 3 ML AMPUL.NEB IH SCH ×3 (08:59→21:33)
--- NOTE | 2019-08-17 09:37 | Progress Note ---
Assessment and Plan Assessment and plan: Acute respiratory failure with hypoxia - likely from PNA vs Pneumonitis vs Pulmonary edema - repeat CXR on showed slight improvement - cont supplemental O2 taper, nebs, iv abx and lasix iv - blood cultures neg so far Sepsis -Probably secondary to pneumonia -Continue IV cefepime. Vanc d/sapphire since cultures are neg -Blood cultures neg so far Acute diastolic heart failure with EF of 55-60% -Improving -Cont IV diuretics -Echo showed EF of 55-60% with abnormal diastolic dysfunction H/o PE -cont eliquis Uterine Cancer with mets to bone and liver s/p chemo and total hysterectomy - Oncology, Dr Sun following Possible UTI -Urine culture not obtained RT hepatic lesion -Differentials include metastasis versus abscess -CT-guided biopsy held Thyroid nodule -Thyroid US showed multiple nodules, none large to be biopsied -For outpatient follow-up Hypokalemia -improving repletion, we'll monitor level Hyponatremia -Improved Metabolic acidosis -On oral supplements, will monitor level Hypomagnesemia -Repleted and improved DVT ppx: SCD, eliquis very poor prognosis DNR/DNI Disposition: No scholarship bed available for inpatient hospice per 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 Pending arrangement for home hospice care. History Interval history: Patient now back on ventimask. She has no new complaint Hospitalist Physical - Constitutional Vitals: Temp Pulse Resp BP Pulse Ox 98.4 F 120 H 24 90/54 96 08/17/19 04:26 08/17/19 08:55 08/17/19 08:55 08/17/19 05:19 08/17/19 09:06 General appearance: Present: no acute distress, mild distress - EENT Eyes: Present: PERRL, EOM intact ENT: hearing intact, clear oral mucosa - Neck Neck: Present: supple - Respiratory Respiratory effort: labored Respiratory: bilateral: diminished - Cardiovascular Rhythm: regular (with tachycardia) Heart Sounds: Present: S1 & S2 - Extremities Extremities: No edema - Abdominal General gastrointestinal: soft, non-tender, normal bowel sounds - Integumentary Integumentary: Present: warm, dry - Psychiatric Psychiatric: depressed - Neurologic Neurologic: moves all extremities Results - Labs CBC & Chem 7: 08/12/19 11:36 08/17/19 02:09 Labs: Laboratory Last Values WBC 7.4 K/mm3 (4.5-11.0) 08/12/19 11:36 RBC 3.93 M/mm3 (3.65-5.03) 08/12/19 11:36 Hgb 11.1 gm/dl (10.1-14.3) 08/12/19 11:36 Hct 34.3 % (30.3-42.9) 08/12/19 11:36 MCV 87 fl (79-97) 08/12/19 11:36 MCH 28 pg (28-32) 08/12/19 11:36 MCHC 32 % (30-34) 08/12/19 11:36 RDW 19.2 % (13.2-15.2) H 08/12/19 11:36 Plt Count 327 K/mm3 (140-440) 08/12/19 11:36 Lymph % (Auto) 8.6 % (13.4-35.0) L 08/12/19 11:36 [place] % (Auto) 5.0 % (0.0-7.3) 08/12/19 11:36 Eos % (Auto) 2.7 % (0.0-4.3) 08/12/19 11:36 Baso % (Auto) 0.4 % (0.0-1.8) 08/12/19 11:36 Lymph # 0.6 K/mm3 (1.2-5.4) L 08/12/19 11:36 [place] # 0.4 K/mm3 (0.0-0.8) 08/12/19 11:36 Eos # 0.2 K/mm3 (0.0-0.4) 08/12/19 11:36 Baso # 0.0 K/mm3 (0.0-0.1) 08/12/19 11:36 Seg Neutrophils % 83.3 % (40.0-70.0) H 08/12/19 11:36 Seg Neutrophils # 6.2 K/mm3 (1.8-7.7) 08/12/19 11:36 PT 19.8 Sec. (12.2-14.9) H 08/12/19 11:36 INR 1.71 (0.87-1.13) H 08/12/19 11:36 VBG pH 7.405 (7.320-7.420) 08/12/19 11:36 Sodium 138 mmol/L (137-145) 08/17/19 02:09 Potassium 3.6 mmol/L (3.6-5.0) 08/17/19 02:09 Chloride 101.5 mmol/L (98-107) 08/17/19 02:09 Carbon Dioxide 22 mmol/L (22-30) 08/17/19 02:09 Anion Gap 18 mmol/L 08/17/19 02:09 BUN 28 mg/dL (7-17) H 08/17/19 02:09 Creatinine 0.9 mg/dL (0.7-1.2) 08/17/19 02:09 Estimated GFR > 60 ml/min 08/17/19 02:09 BUN/Creatinine Ratio 31 % 08/17/19 02:09 Glucose 98 mg/dL (65-100) 08/17/19 02:09 POC Glucose 107 (70-105) H 08/13/19 22:46 Lactic Acid 1.80 mmol/L (0.7-2.0) 08/12/19 14:35 Calcium 8.2 mg/dL (8.4-10.2) L 08/17/19 02:09 Magnesium 1.70 mg/dL (1.7-2.3) 08/16/19 01:47 Total Bilirubin 0.90 mg/dL (0.1-1.2) 08/12/19 11:36 AST 71 units/L (5-40) H 08/12/19 11:36 ALT 35 units/L (7-56) 08/12/19 11:36 Alkaline Phosphatase 672 units/L (35-129) H 08/12/19 11:36 Troponin T < 0.010 ng/mL (0.00-0.029) 08/12/19 11:36 NT-Pro-B Natriuret Pep 403.6 pg/mL (0-900) 08/12/19 14:35 Total Protein 6.7 g/dL (6.3-8.2) 08/12/19 11:36 Albumin 2.6 g/dL (3.9-5) L 08/12/19 11:36 Albumin/Globulin Ratio 0.6 % 08/12/19 11:36 CA 125 Antigen 126 U/mL (<35) H 08/14/19 09:34 TSH 0.620 mlU/mL (0.270-4.200) 08/12/19 17:58 Free T4 1.40 ng/dL (0.76-1.46) 08/12/19 17:37 Urine Color Yellow (Yellow) 08/12/19 Unknown Urine Turbidity Slightly-cloudy (Clear) 08/12/19 Unknown Urine pH 7.0 (5.0-7.0) 08/12/19 Unknown Ur Specific [place] 1.014 (1.003-1.030) 08/12/19 Unknown Urine Protein <15 mg/dl mg/dL (Negative) 08/12/19 Unknown Urine Glucose (UA) Neg mg/dL (Negative) 08/12/19 Unknown Urine Ketones Neg mg/dL (Negative) 08/12/19 Unknown Urine Blood Sm (Negative) 08/12/19 Unknown Urine Nitrite Neg (Negative) 08/12/19 Unknown Urine Bilirubin Neg (Negative) 08/12/19 Unknown Urine Urobilinogen < 2.0 mg/dL (<2.0) 08/12/19 Unknown Ur Leukocyte Esterase Lg (Negative) 08/12/19 Unknown Urine WBC (Auto) 19.0 /HPF (0.0-6.0) H 08/12/19 Unknown Urine RBC (Auto) 4.0 /HPF (0.0-6.0) 08/12/19 Unknown U Epithel Cells (Auto) 1.0 /HPF (0-13.0) 08/12/19 Unknown Urine Bacteria (Auto) 1+ /HPF (Negative) 08/12/19 Unknown Vancomycin Trough 21.9 ug/mL (5.0-20.0) H 08/15/19 07:27 Active Medications - Current Medications Current Medications: Generic Name Dose Route Start Last Admin Trade Name Freq PRN Reason Stop Dose Admin Acetaminophen 650 mg 08/12/19 15:35 08/13/19 01:44 Tylenol PO 650 mg Q4H PRN Administration Pain MILD(1-3)/Fever >100.5/ESPANA Albuterol 2.5 mg 08/13/19 00:46 Proventil IH Q4HRT PRN Shortness Of Breath Albuterol/Ipratropium 1 ampul 08/13/19 08:00 08/17/19 08:59 Duoneb *Not For Prn Use* IH 1 ampul TIDRT TREY Administration Apixaban 5 mg 08/12/19 22:00 08/16/19 21:35 Eliquis PO 5 mg Q12HR TREY Administration Protocol Famotidine 10 mg 08/12/19 22:00 08/16/19 21:35 Pepcid PO 10 mg BID TREY Administration Furosemide 40 mg 08/12/19 18:00 08/17/19 05:22 Lasix IV Not Given 0600,1800 [facility] Hydralazine HCl 5 mg 08/12/19 15:35 Apresoline IV Q30MIN PRN HTN SYS>180 SONA>100 Cefepime HCl 2 gm in 100 mls @ 200 mls/hr 08/12/19 13:00 08/17/19 05:30 Cefepime/Ns 2 Gm/100 Ml IV 200 mls/hr Q8HR TREY Administration Protocol Metoprolol Tartrate 5 mg 08/13/19 21:25 08/15/19 00:12 Metoprolol IV 5 mg Q6H PRN Administration Tachyarrhythmias Morphine Sulfate 2 mg 08/12/19 18:25 Morphine IV Q4H PRN Pain , Severe (7-10) Ondansetron HCl 4 mg 08/12/19 18:24 08/16/19 14:59 Zofran IV 4 mg Q8H PRN Administration N/V unrelieved by Reglan Oxycodone/Acetaminophen 1 tab 08/12/19 15:35 08/16/19 09:57 Percocet 5/325 PO 1 tab Q6H PRN Administration Pain, Moderate (4-6) Potassium Chloride 40 meq 08/17/19 10:00 K-Dur PO 08/20/19 09:59 QDAY [facility] Sodium Bicarbonate 650 mg 08/16/19 14:00 08/16/19 20:11 Sodium Bicarbonate PO 08/18/19 13:59 650 mg TID TREY Administration Nutrition/Malnutrition Assess - Dietary Evaluation Nutrition/Malnutrition Findings: Nutrition Notes Start: 08/13/19 12:05 Freq: Status: Active Protocol: Document 08/15/19 11:04 AP (Rec: 08/15/19 11:20 AP [id number]) Co-Sign 08/15/19 11:04 LM Nutrition Notes Need for Assessment generated from: MD Order,MST Initial or Follow up Reassessment Other Pertinent Diagnosis Uterine cancer mets to bone and liver, SOB, abdominal pain Current Diet Regular Labs/Tests NA 136 BUN 25 BG 155 Pertinent Medications Reviewed Height 4 ft 9 in Weight 60.1 kg [place] Body Weight (kg) 38.63 BMI 28.6 Intake Prior to Admission Poor Weight Status Overweight Subjective/Other Information F/U for PO/ONS intakes. Pt NPO upon room visit. Pt stated she ate no dinner last night. Pt RN stated pt consumed 75% of lunch tray and 100% of ONS. Percent of energy/protein needs met: 100% kcal 100% PRO Burn Absent Trauma Absent Current % PO Fair (50-74%) Minimum of two criteria Yes Energy Intake (severe) < or equal to 50% Estimated Energy Requirement > or equal to 5 days Interpretation of Weight Loss (non- 7.5% in 3 months severe) Interpretation of Weight Loss (severe) >5% in 1 month Muscle Mass Mild Depletion (non-severe) #1 Nutrition Diagnosis Malnutrition Diagnosis Progress(for reassessment Continues documentation) Is patient on ventilator? No Is Patient Ambulatory and/or Out of Bed Yes REE-([place]-ambulatory/OOB) [ 1390.844 NUTR.MSJOOB] Calculation Used for Recommendations [place] Additional Notes Protein: 70-87g/kg (1.2-1.5g/ kg) Fluid: 1ml/kcal Nutrition Intervention Change Diet Order: Continue current Add Supplement/Snack (indicate name/kcal Ensure Enlive Vanilla BID /protein ) Provides kCal: 700 Provides Protein (gm) 40 Goal #1 Pt continue to meet >90% kcal/ PRO needs via PO/ONS. Anticipated Discharge Needs: Regular diet Follow-Up By: 08/22/19 Additional Comments F/U for PO and ONS intakes.
[2019-08-17] MEDS: APIXABAN 5 MG TAB PO SCH ×2 (09:54→21:40)
[2019-08-17] MEDS: SODIUM BICARBONATE 650 MG TAB PO SCH ×3 (09:54→20:28)
[2019-08-17] MEDS: POTASSIUM CHLORIDE ER 20 MEQ TAB PO SCH (09:55)
[2019-08-17] MEDS: FAMOTIDINE 10 MG TAB PO SCH ×2 (09:55→21:43)
[2019-08-17] MEDS: ACETAMINOPHEN 325 MG TAB PO PRN (20:28)
[2019-08-18] MEDS: FUROSEMIDE 40 MG/4 ML INJ IV SCH ×2 (05:10→19:11)
[2019-08-18] MEDS: CEFEPIME/NS 2 GM/100 ML 2 GM/100 ML BAG IV SCH ×3 (05:12→22:39)
[2019-08-18 05:25] LABS: BUN/Creatinine Ratio 32; Blood Urea Nitrogen 29 mg/dL (7-17); Calcium 8.4 mg/dL (8.4-10.2); Hemolysis Index 4
--- NOTE | 2019-08-18 07:57 | Hem/Onc Progress Note ---
Assessment and Plan 1. History of uterine cancer. Notes mention of stage 4 with mets to bone and liver. Radiology now shows a 9.7 right hepatic lobe lesion. 2. Large thyroid lesion 5.3 cm. 3. Admitted with fever, cough, abdominal pain. 4. The patient has a port. The patient had port infection in the past and this was removed. 5. Radiology suggests possible pneumonia versus pulmonary edema. 6. History of pulmonary embolism, was on Eliquis, now there is no pulmonary embolism. The patient has multiple issues. She says no chemotherapy has been given. family had a note which gives the sequence of events fever - infection issues d/w dr reza on 08/14 hospice pending - Patient Problems (1) Uterine cancer Current Visit: Yes Status: Acute Subjective Date of service: 08/18/19 Principal diagnosis: uterine ca Interval history: no pain Objective - Exam Narrative Exam: Pain - none General appearance - awake Performance status dependent for care Eyes - no icterus ENT - no thrush LNs cervical not palpable Neck - no LN Respiratory Normal Breath sounds - CTA anteriorly CVS S1 S2 + Extremities no edema General GI Soft Rectal deferred female - deferred Skin warm PORT + Musculoskeletal - moving limbs Neurologically awake - Constitutional Vitals: Last Vital Signs Temp 98.2 F 08/17/19 21:00 Pulse 114 H 08/18/19 05:08 Resp 26 H 08/17/19 22:00 BP 98/72 08/18/19 05:08 Pulse Ox 93 08/18/19 05:08 - Labs Lab Results: Laboratory Results - last 24 hr 08/18/19 04:25 Sodium 136 L Potassium 4.0 Chloride 100.1 Carbon Dioxide 23 Anion Gap 17 BUN 29 H Creatinine 0.9 Estimated GFR > 60 BUN/Creatinine Ratio 32 Glucose 93 Calcium 8.4 Medications & Allergies - Medications Allergies/Adverse Reactions: Allergies No Known Allergies Allergy (Verified 08/12/19 11:21) Home Medications: Home Medications Medication Instructions Recorded Confirmed Last Taken Type Apixaban [Eliquis] 5 mg PO BID 08/16/19 08/16/19 Unknown History Apixaban [Eliquis] 5 mg PO Q12HR #60 tablet 08/16/19 Unknown Rx Benadryl CAP 25 mg PO Q8H 08/16/19 08/16/19 Unknown History Furosemide [Lasix TAB] 40 mg PO QDAY #30 tablet 08/16/19 Unknown Rx Metoprolol [Lopressor TAB] 12.5 mg PO BID #30 tablet 08/16/19 Unknown Rx Midodrine HCl 10 mg PO TID #90 tablet 08/16/19 Unknown Rx Potassium Chloride [K-Dur] 20 meq PO DAILY #30 tablet 08/16/19 Unknown Rx Sodium Bicarbonate 650 mg PO TID #9 tablet 08/16/19 Unknown Rx levoFLOXacin [Levaquin TAB] 750 mg PO QDAY #3 tablet 08/16/19 Unknown Rx Active Medications: Generic Name Dose Route Start Last Admin Trade Name Freq PRN Reason Stop Dose Admin Acetaminophen 650 mg 08/12/19 15:35 08/17/19 20:28 Tylenol PO 650 mg Q4H PRN Administration Pain MILD(1-3)/Fever >100.5/ESPANA Albuterol 2.5 mg 08/13/19 00:46 Proventil IH Q4HRT PRN Shortness Of Breath Albuterol/Ipratropium 1 ampul 08/13/19 08:00 08/17/19 21:33 Duoneb *Not For Prn Use* IH 1 ampul TIDRT TREY Administration Apixaban 5 mg 08/12/19 22:00 08/17/19 21:40 Eliquis PO 5 mg Q12HR TREY Administration Protocol Famotidine 10 mg 08/12/19 22:00 08/17/19 21:43 Pepcid PO 10 mg BID TRYE Administration Furosemide 40 mg 08/12/19 18:00 08/18/19 05:10 Lasix IV Not Given 0600,1800 TREY Hydralazine HCl 5 mg 08/12/19 15:35 Apresoline IV Q30MIN PRN HTN SYS>180 SONA>100 Cefepime HCl 2 gm in 100 mls @ 200 mls/hr 08/12/19 13:00 08/18/19 05:12 Cefepime/Ns 2 Gm/100 Ml IV 08/19/19 12:59 200 mls/hr Q8HR TREY Administration Protocol Metoprolol Tartrate 5 mg 08/13/19 21:25 08/15/19 00:12 Metoprolol IV 5 mg Q6H PRN Administration Tachyarrhythmias Morphine Sulfate 2 mg 08/12/19 18:25 Morphine IV Q4H PRN Pain , Severe (7-10) Ondansetron HCl 4 mg 08/12/19 18:24 08/16/19 14:59 Zofran IV 4 mg Q8H PRN Administration N/V unrelieved by Reglan Oxycodone/Acetaminophen 1 tab 08/12/19 15:35 08/16/19 09:57 Percocet 5/325 PO 1 tab Q6H PRN Administration Pain, Moderate (4-6) Potassium Chloride 40 meq 08/17/19 10:00 08/17/19 09:55 K-Dur PO 08/20/19 09:59 40 meq QDAY TREY Administration Sodium Bicarbonate 650 mg 08/16/19 14:00 08/17/19 20:28 Sodium Bicarbonate PO 08/18/19 13:59 650 mg TID TREY Administration
[2019-08-18] MEDS: IPRATROPIUM/ALBUTEROL SULFATE 3 ML AMPUL.NEB IH SCH ×3 (09:20→20:17)
[2019-08-18] MEDS: FAMOTIDINE 10 MG TAB PO SCH ×2 (09:48→22:39)
[2019-08-18] MEDS: SODIUM BICARBONATE 650 MG TAB PO SCH (09:48)
[2019-08-18] MEDS: POTASSIUM CHLORIDE ER 20 MEQ TAB PO SCH (09:48)
[2019-08-18] MEDS: APIXABAN 5 MG TAB PO SCH ×2 (09:48→22:39)
--- NOTE | 2019-08-18 15:59 | Progress Note ---
Assessment and Plan Assessment and plan: 53-year-old woman with history of metastatic uterine cancer, cancer has spread to bone and liver who presented to the hospital with shortness of breath and lower abdominal pain. Patient has history of PE on Eliquis.. She was seen by oncology while in hospital, she has stage IV disease, she had a port in the past and port was removed due to port infection. Given advanced disease with stage IV disease the family made her DNR with plans for home hospice. Home oxygen was provided for the patient. Family the process of getting things organized for the patient to be discharged tomorrow. -electrolytes were repleted -She completed a course of antibiotics while in hospital. -Preventative health counseling performed for 17 minutes Advanced care planning performed for 30 minutes Diagnosis Acute respiratory failure with hypoxia Metastatic uterine cancer Sepsis secondary to pneumonia Acute diastolic heart failure hypokalemia hypomagnesemia History Interval history: Patient continues to be hypoxic with movement of when her oxygen is taken off. She has had some dry cough. Continues to have dull pelvic/lower abdominal pain. No fevers No wheezing Hospitalist Physical - Physical exam Narrative exam: General.: Appears chronically ill HEENT: Moist mucous membranes, extraocular muscles intact, no lymphadenopathy Neck: supple Cardiac: S1-S2 heard Lungs: Crackles Abdomen: soft , nontender, nondistended, bowel sounds positive Extremities: no edema clubbing or cyanosis Skin: no rash or lesions Neurologic: no gross focal deficits Psych: calm, and cooperative - Constitutional Vitals: Temp Pulse Resp BP Pulse Ox 98.2 F 114 H 26 H 98/72 93 08/17/19 21:00 08/18/19 05:08 08/17/19 22:00 08/18/19 05:08 08/18/19 05:08 General appearance: Present: no acute distress, mild distress Results - Labs CBC & Chem 7: 08/12/19 11:36 08/18/19 04:25 Labs: Laboratory Last Values WBC 7.4 K/mm3 (4.5-11.0) 08/12/19 11:36 RBC 3.93 M/mm3 (3.65-5.03) 08/12/19 11:36 Hgb 11.1 gm/dl (10.1-14.3) 08/12/19 11:36 Hct 34.3 % (30.3-42.9) 08/12/19 11:36 MCV 87 fl (79-97) 08/12/19 11:36 MCH 28 pg (28-32) 08/12/19 11:36 MCHC 32 % (30-34) 08/12/19 11:36 RDW 19.2 % (13.2-15.2) H 08/12/19 11:36 Plt Count 327 K/mm3 (140-440) 08/12/19 11:36 Lymph % (Auto) 8.6 % (13.4-35.0) L 08/12/19 11:36 [place] % (Auto) 5.0 % (0.0-7.3) 08/12/19 11:36 Eos % (Auto) 2.7 % (0.0-4.3) 08/12/19 11:36 Baso % (Auto) 0.4 % (0.0-1.8) 08/12/19 11:36 Lymph # 0.6 K/mm3 (1.2-5.4) L 08/12/19 11:36 [place] # 0.4 K/mm3 (0.0-0.8) 08/12/19 11:36 Eos # 0.2 K/mm3 (0.0-0.4) 08/12/19 11:36 Baso # 0.0 K/mm3 (0.0-0.1) 08/12/19 11:36 Seg Neutrophils % 83.3 % (40.0-70.0) H 08/12/19 11:36 Seg Neutrophils # 6.2 K/mm3 (1.8-7.7) 08/12/19 11:36 PT 19.8 Sec. (12.2-14.9) H 08/12/19 11:36 INR 1.71 (0.87-1.13) H 08/12/19 11:36 VBG pH 7.405 (7.320-7.420) 08/12/19 11:36 Sodium 136 mmol/L (137-145) L 08/18/19 04:25 Potassium 4.0 mmol/L (3.6-5.0) 08/18/19 04:25 Chloride 100.1 mmol/L (98-107) 08/18/19 04:25 Carbon Dioxide 23 mmol/L (22-30) 08/18/19 04:25 Anion Gap 17 mmol/L 08/18/19 04:25 BUN 29 mg/dL (7-17) H 08/18/19 04:25 Creatinine 0.9 mg/dL (0.7-1.2) 08/18/19 04:25 Estimated GFR > 60 ml/min 08/18/19 04:25 BUN/Creatinine Ratio 32 % 08/18/19 04:25 Glucose 93 mg/dL (65-100) 08/18/19 04:25 POC Glucose 107 (70-105) H 08/13/19 22:46 Lactic Acid 1.80 mmol/L (0.7-2.0) 08/12/19 14:35 Calcium 8.4 mg/dL (8.4-10.2) 08/18/19 04:25 Magnesium 1.70 mg/dL (1.7-2.3) 08/16/19 01:47 Total Bilirubin 0.90 mg/dL (0.1-1.2) 08/12/19 11:36 AST 71 units/L (5-40) H 08/12/19 11:36 ALT 35 units/L (7-56) 08/12/19 11:36 Alkaline Phosphatase 672 units/L (35-129) H 08/12/19 11:36 Troponin T < 0.010 ng/mL (0.00-0.029) 08/12/19 11:36 NT-Pro-B Natriuret Pep 403.6 pg/mL (0-900) 08/12/19 14:35 Total Protein 6.7 g/dL (6.3-8.2) 08/12/19 11:36 Albumin 2.6 g/dL (3.9-5) L 08/12/19 11:36 Albumin/Globulin Ratio 0.6 % 08/12/19 11:36 CA 125 Antigen 126 U/mL (<35) H 08/14/19 09:34 TSH 0.620 mlU/mL (0.270-4.200) 08/12/19 17:58 Free T4 1.40 ng/dL (0.76-1.46) 08/12/19 17:37 Urine Color Yellow (Yellow) 08/12/19 Unknown Urine Turbidity Slightly-cloudy (Clear) 08/12/19 Unknown Urine pH 7.0 (5.0-7.0) 08/12/19 Unknown Ur Specific [place] 1.014 (1.003-1.030) 08/12/19 Unknown Urine Protein <15 mg/dl mg/dL (Negative) 08/12/19 Unknown Urine Glucose (UA) Neg mg/dL (Negative) 08/12/19 Unknown Urine Ketones Neg mg/dL (Negative) 08/12/19 Unknown Urine Blood Sm (Negative) 08/12/19 Unknown Urine Nitrite Neg (Negative) 08/12/19 Unknown Urine Bilirubin Neg (Negative) 08/12/19 Unknown Urine Urobilinogen < 2.0 mg/dL (<2.0) 08/12/19 Unknown Ur Leukocyte Esterase Lg (Negative) 08/12/19 Unknown Urine WBC (Auto) 19.0 /HPF (0.0-6.0) H 08/12/19 Unknown Urine RBC (Auto) 4.0 /HPF (0.0-6.0) 08/12/19 Unknown U Epithel Cells (Auto) 1.0 /HPF (0-13.0) 08/12/19 Unknown Urine Bacteria (Auto) 1+ /HPF (Negative) 08/12/19 Unknown Vancomycin Trough 21.9 ug/mL (5.0-20.0) H 08/15/19 07:27 Active Medications - Current Medications Current Medications: Generic Name Dose Route Start Last Admin Trade Name Freq PRN Reason Stop Dose Admin Acetaminophen 650 mg 08/12/19 15:35 08/17/19 20:28 Tylenol PO 650 mg Q4H PRN Administration Pain MILD(1-3)/Fever >100.5/ESPANA Albuterol 2.5 mg 08/13/19 00:46 Proventil IH Q4HRT PRN Shortness Of Breath Albuterol/Ipratropium 1 ampul 08/13/19 08:00 08/18/19 14:58 Duoneb *Not For Prn Use* IH 1 ampul TIDRT TREY Administration Apixaban 5 mg 08/12/19 22:00 08/18/19 09:48 Eliquis PO 5 mg Q12HR TREY Administration Protocol Famotidine 10 mg 08/12/19 22:00 08/18/19 09:48 Pepcid PO 10 mg BID TREY Administration Furosemide 40 mg 08/12/19 18:00 08/18/19 05:10 Lasix IV Not Given 0600,1800 TREY Hydralazine HCl 5 mg 08/12/19 15:35 Apresoline IV Q30MIN PRN HTN SYS>180 SONA>100 Cefepime HCl 2 gm in 100 mls @ 200 mls/hr 08/12/19 13:00 08/18/19 14:59 Cefepime/Ns 2 Gm/100 Ml IV 08/19/19 12:59 200 mls/hr Q8HR TREY Administration Protocol Metoprolol Tartrate 5 mg 08/13/19 21:25 08/15/19 00:12 Metoprolol IV 5 mg Q6H PRN Administration Tachyarrhythmias Morphine Sulfate 2 mg 08/12/19 18:25 Morphine IV Q4H PRN Pain , Severe (7-10) Ondansetron HCl 4 mg 08/12/19 18:24 08/16/19 14:59 Zofran IV 4 mg Q8H PRN Administration N/V unrelieved by Reglan Oxycodone/Acetaminophen 1 tab 08/12/19 15:35 08/16/19 09:57 Percocet 5/325 PO 1 tab Q6H PRN Administration Pain, Moderate (4-6) Potassium Chloride 40 meq 08/17/19 10:00 08/18/19 09:48 K-Dur PO 08/20/19 09:59 40 meq QDAY TREY Administration Nutrition/Malnutrition Assess - Dietary Evaluation Nutrition/Malnutrition Findings: Nutrition Notes Start: 08/13/19 12:05 Freq: Status: Active Protocol: Document 08/15/19 11:04 AP (Rec: 08/15/19 11:20 AP [id number]) Co-Sign 08/15/19 11:04 LM Nutrition Notes Need for Assessment generated from: MD Order,MST Initial or Follow up Reassessment Other Pertinent Diagnosis Uterine cancer mets to bone and liver, SOB, abdominal pain Current Diet Regular Labs/Tests NA 136 BUN 25 BG 155 Pertinent Medications Reviewed Height 4 ft 9 in Weight 60.1 kg [place] Body Weight (kg) 38.63 BMI 28.6 Intake Prior to Admission Poor Weight Status Overweight Subjective/Other Information F/U for PO/ONS intakes. Pt NPO upon room visit. Pt stated she ate no dinner last night. Pt RN stated pt consumed 75% of lunch tray and 100% of ONS. Percent of energy/protein needs met: 100% kcal 100% PRO Burn Absent Trauma Absent Current % PO Fair (50-74%) Minimum of two criteria Yes Energy Intake (severe) < or equal to 50% Estimated Energy Requirement > or equal to 5 days Interpretation of Weight Loss (non- 7.5% in 3 months severe) Interpretation of Weight Loss (severe) >5% in 1 month Muscle Mass Mild Depletion (non-severe) #1 Nutrition Diagnosis Malnutrition Diagnosis Progress(for reassessment Continues documentation) Is patient on ventilator? No Is Patient Ambulatory and/or Out of Bed Yes REE-([facility]-ambulatory/OOB) [ 1390.844 [id number]] Calculation Used for Recommendations [facility] Additional Notes Protein: 70-87g/kg (1.2-1.5g/ kg) Fluid: 1ml/kcal Nutrition Intervention Change Diet Order: Continue current Add Supplement/Snack (indicate name/kcal Ensure Enlive Vanilla BID /protein ) Provides kCal: 700 Provides Protein (gm) 40 Goal #1 Pt continue to meet >90% kcal/ PRO needs via PO/ONS. Anticipated Discharge Needs: Regular diet Follow-Up By: 08/22/19 Additional Comments F/U for PO and ONS intakes.
[2019-08-19] MEDS: CEFEPIME/NS 2 GM/100 ML 2 GM/100 ML BAG IV SCH (06:28)
[2019-08-19] MEDS: FUROSEMIDE 40 MG/4 ML INJ IV SCH (06:28)
[2019-08-19] MEDS: IPRATROPIUM/ALBUTEROL SULFATE 3 ML AMPUL.NEB IH SCH ×2 (08:51→18:47)
[2019-08-19] MEDS: APIXABAN 5 MG TAB PO SCH (10:15)
[2019-08-19] MEDS: FAMOTIDINE 10 MG TAB PO SCH (10:16)
[2019-08-19] MEDS: POTASSIUM CHLORIDE ER 20 MEQ TAB PO SCH (10:16)
--- NOTE | 2019-08-19 11:11 | Discharge Summary ---
Providers - Providers Date of Admission: 08/12/19 15:05 Attending physician: JADEN FARRELL MD 08/12/19 15:34 Consult to Physician [CONS] Routine Comment: Consulting Provider: KHARI BRAN Physician Instructions: Reason For Exam: metastatic uterine cancer 08/12/19 18:08 Consult to Dietitian/Nutrition [CONS] Routine Physician Instructions: Reason For Exam: Reason for Consult: Poor oral intake Primary care physician: CIGARETTE TESTER Hospitalization Condition: Stable Hospital course: 53-year-old woman with history of metastatic uterine cancer, cancer has spread to bone and liver who presented to the hospital with shortness of breath and lower abdominal pain. Patient has history of PE on Eliquis.. She was seen by oncology while in hospital, she has stage IV disease, she had a port in the past and port was removed due to port infection. Given advanced disease with stage IV disease the family made her DNR with plans for home hospice. Home oxygen was provided for the patient. Family the process of getting things organized for the patient to be discharged tomorrow. -electrolytes were repleted -She completed a course of antibiotics while in hospital. -Preventative health counseling performed for 17 minutes Advanced care planning performed for 30 minutes Diagnosis Acute respiratory failure with hypoxia Metastatic uterine cancer Sepsis secondary to pneumonia Acute diastolic heart failure hypokalemia hypomagnesemia Disposition: [id number] TO HOME OR SELFCARE Time spent for discharge: 33 mins Core Measure Documentation - Palliative Care Palliative Care/ Comfort Measures: Not Applicable - Core Measures Any of the following diagnoses?: none Exam - Physical Exam Narrative exam: General.: Appears chronically ill HEENT: Moist mucous membranes, extraocular muscles intact, no lymphadenopathy Neck: supple Cardiac: S1-S2 heard Lungs: Crackles Abdomen: soft , nontender, nondistended, bowel sounds positive Extremities: no edema clubbing or cyanosis Skin: no rash or lesions Neurologic: no gross focal deficits Psych: calm, and cooperative - Constitutional Vitals: Temp Pulse Resp BP Pulse Ox 99.4 F 120 H 20 86/56 98 08/19/19 06:19 08/19/19 08:54 08/19/19 08:54 08/19/19 06:19 08/19/19 08:56 Plan Follow up with: EMANUEL FINN MD [Primary Care Provider] - 7 Days Prescriptions: Apixaban [Eliquis] 5 mg PO Q12HR #60 tablet Potassium Chloride [K-Dur] 20 meq PO DAILY #30 tablet Furosemide [Lasix TAB] 40 mg PO QDAY #30 tablet levoFLOXacin [Levaquin TAB] 750 mg PO QDAY #3 tablet Metoprolol [Lopressor TAB] 12.5 mg PO BID #30 tablet Midodrine HCl 10 mg PO TID #90 tablet Sodium Bicarbonate 650 mg PO TID #9 tablet
[2019-08-19 14:03] VITALS: BP 89/58
== END 2019-08-19 17:40 | disposition home or self-care (01) | DRG 871 ==
LOC: ED 11:19 → 3A 15:05
PROVIDERS: ADMIT Internal Medicine; ATTEND Internal Medicine
PROC: 3E0234Z Introduction of Serum, Toxoid and Vaccine into Muscle, Percutaneous Approach (ICD-10-PCS; principal; 2019-08-13)
DX: A41.9 Sepsis, unspecified organism (principal); J18.9 Pneumonia, unspecified organism; J96.01 Acute respiratory failure with hypoxia; I50.31 Acute diastolic (congestive) heart failure; E87.1 Hypo-osmolality and hyponatremia; N30.01 Acute cystitis with hematuria; E87.6 Hypokalemia; E83.42 Hypomagnesemia; K76.9 Liver disease, unspecified; E04.1 Nontoxic single thyroid nodule; Z86.14 Personal history of Methicillin resistant Staphylococcus aureus infection; Z85.42 Personal history of malignant neoplasm of other parts of uterus; Z85.830 Personal history of malignant neoplasm of bone; Z85.05 Personal history of malignant neoplasm of liver; Z86.711 Personal history of pulmonary embolism; Z90.710 Acquired absence of both cervix and uterus; Z23 Encounter for immunization
CPT/HCPCS: 36415; 71045; 71275; 76536; 80048; 80053; 80202; 81001; 82140; 82805; 82962; 83735; 83880; 84439; 84443; 84484; 85025; 85610; 86304; 87040; 87086; 87116; 87205; 90732; 93005; 93010; 93306; 94640; 94760; G0378; J0692; J1940; J2270; J2405; J3370; J7030; J7040; J7050; Q9967